=== PATIENT | male | born 1950 | race Caucasian/White ===

== ENCOUNTER 2020-03-30 12:45 | Outpatient (CLI) | payer MEDICARE, SELFPAY ==
[2020-03-30 14:01] LABS: Alanine Aminotransferase 38 U/L (16-63); Albumin Level 4.2 g/dL (3.4-5.0); Alkaline Phosphatase 67 U/L (46-116); Anion Gap 15.2 mmol/L (7-16); Aspartate Amino Transferase 29 U/L (15-37); Bilirubin,Total 1.4 mg/dL (0.00-1.00); Blood Urea Nitrogen 18 mg/dL (7-18); Calcium 9.1 mg/dL (8.5-10.1); Carbon Dioxide 26 mmol/L (21-32); Chloride 101 mmol/L (98-108); Cholesterol 114 mg/dL (0-200); Creatine Kinase 266 U/L (39-308); Estimated Glomerular Filt Rate > 60; Glucose 91 mg/dL (70-99); HDL Direct 45 mg/dL (40-60); LDL Cholesterol Calculated 56 mg/dL (<130); Osmolality Calculated 287 mOsm/kg (285-295); Potassium 4.2 mmol/L (3.5-5.1); Sodium 138 mmol/L (136-145); Total Protein 7.1 g/dL (6.4-8.2); Triglycerides 64 mg/dL (0-150); Uric Acid 6.3 mg/dL (3.5-7.2)
== END 2020-03-30 12:46 | disposition home or self-care (01) ==
LOC: CHSLAB 12:49
PROVIDERS: PCP Internal Medicine; Visit Provider Internal Medicine Cardiovascular Disease
DX: E78.5 Hyperlipidemia, unspecified (principal)
CPT/HCPCS: 36415; 80053; 80061; 82550; 84550

== ENCOUNTER 2021-02-21 07:49 | Outpatient (CLI) | payer MEDICARE, SELFPAY ==
[2021-02-21 08:01] LABS: Basophils Absolute Auto 0.03 K/mm3 (0.00-0.10); Basophils Percent Auto 0.4 % (0.0-1.0); Eosinophils Absolute Auto 0.36 K/mm3 (0.02-0.50); Eosinophils Percent Auto 5.3 % (1.0-6.0); Hematocrit 45.9 % (37.0-46.0); Hemoglobin 15.7 g/dL (12.4-15.3); Immature Granulocyte Absolute 0.04 K/mm3 (0.00-0.00); Immature Granulocyte Percent A 0.6 % (0.0-0.0); Lymphocytes Percent Auto 33.6 % (18.0-42.0); Mean Corpuscular HGB Conc 34.2 g/dL (32.0-36.0); Mean Corpuscular Hemoglobin 31.6 pg (27.0-31.0); Mean Corpuscular Volume 92.4 fL (78.0-102.0); Mean Platelet Volume 9.3 fl (8.7-11.0); Monocytes Absolute Auto 0.64 K/mm3 (0.10-0.90); Monocytes Percent Auto 9.4 % (2.0-11.0); Neutrophils Absolute Auto 3.5 K/mm3 (1.7-7.2); Neutrophils Percent Auto 50.7 % (50.0-70.0); Platelet Count Result 202 K/mm3 (150-420); Red Blood Count 4.97 M/mm3 (4.70-6.10); Red Cell Distribution Width 12.5 % (11.6-14.4); White Blood Count 6.8 K/mm3 (4.8-10.8)
[2021-02-21 09:08] LABS: Alanine Aminotransferase 44 U/L (16-63); Albumin Level 3.9 g/dL (3.4-5.0); Alkaline Phosphatase 73 U/L (46-116); Anion Gap 10 mmol/L (8-16); Aspartate Amino Transferase 20 U/L (15-37); Bilirubin,Total 0.7 mg/dL (0.00-1.00); Blood Urea Nitrogen 20 mg/dL (7-18); Calcium 8.7 mg/dL (8.5-10.1); Carbon Dioxide 26 mmol/L (21-32); Chloride 105 mmol/L (98-108); Cholesterol 115 mg/dL (0-200); Estimated Glomerular Filt Rate > 60; Glucose 126 mg/dL (70-99); HDL Direct 44 mg/dL (40-60); LDL Cholesterol Calculated 60 mg/dL (<130); Osmolality Calculated 296 mOsm/kg (285-295); Potassium 4.3 mmol/L (3.5-5.1); Sodium 141 mmol/L (136-145); Total Protein 6.9 g/dL (6.4-8.2); Triglycerides 55 mg/dL (0-150)
[2021-02-25 11:31] LABS: Hemoglobin A1C 6.1 % (<5.7)
== END 2021-02-21 07:50 | disposition home or self-care (01) ==
LOC: CHSLAB 07:52
PROVIDERS: PCP Internal Medicine; Visit Provider Internal Medicine Cardiovascular Disease
DX: E78.5 Hyperlipidemia, unspecified (principal); R73.01 Impaired fasting glucose
CPT/HCPCS: 36415; 80053; 80061; 83036; 85025

== ENCOUNTER 2021-05-02 09:55 | Outpatient (CLI) | payer MEDICARE, SELFPAY ==
--- NOTE | ~2021-05-02 | XR_ITS ---
EXAMINATION: XR chest 2V DATE: 05/02/2021 10:22 INDICATION: Dyspnea on exertion. Cough. TECHNIQUE: Frontal and lateral views of the chest were obtained on 3 radiographs. COMPARISON: Chest 2 views 07/07/2014 FINDINGS: The chest demonstrates clear lungs without pneumonia, pleural effusion, or pneumothorax. Th e heart size is normal. IMPRESSION: 1. No acute cardiopulmonary disease. Reviewed, dictated and finalized at location A.
== END 2021-05-02 09:56 | disposition home or self-care (01) ==
LOC: CHSIMG 09:58
PROVIDERS: PCP Internal Medicine; Visit Provider Internal Medicine
DX: R06.00 Dyspnea, unspecified (principal); J44.9 Chronic obstructive pulmonary disease, unspecified
CPT/HCPCS: 71046

== ENCOUNTER 2021-05-08 10:09 | Outpatient (CLI) | payer MEDICARE, SELFPAY | END 2021-05-08 10:10 | disposition home or self-care (01) | LOC: CHSCARD 10:12 | PROVIDERS: PCP Internal Medicine; Visit Provider Internal Medicine | DX: R06.00 Dyspnea, unspecified (principal); J44.9 Chronic obstructive pulmonary disease, unspecified | CPT/HCPCS: 94060; 94726; 94729 ==

== ENCOUNTER 2021-08-20 09:21 | Outpatient (CLI) | payer MEDICARE, SELFPAY ==
--- NOTE | ~2021-08-20 | XR_ITS ---
XR chest 2V DATE: 08/20/2021 12:31 INDICATION: Congestion, anterior chest pain. COPD. TECHNIQUE: 2 views COMPARISON: 05/12/2021 2 view chest FINDINGS: Normal heart size. There appears to be a coronary artery stent. No hilar or mediastinal enl argement. The lungs are hyperinflated consistent with clinical diagnosis of COPD. No pulmonary infiltrate or co nsolidation, pleural effusion or pulmonary vascular congestion or pneumothorax is detected. IMPRESSION: Bilateral hyperinflation; no active cardiopulmonary disease Reviewed, dictated and finalized at location A.
[2021-08-20 10:26] LABS: SARS-CoV-2 RNA PCR Negative (Negative)
[2021-08-20 12:13] LABS: Basophils Absolute Auto 0.06 K/mm3 (0.00-0.10); Basophils Percent Auto 0.7 % (0.0-1.0); Eosinophils Percent Auto 5.9 % (1.0-6.0); Hematocrit 47.7 % (37.0-46.0); Hemoglobin 16.5 g/dL (12.4-15.3); Immature Granulocyte Absolute 0.05 K/mm3 (0.00-0.00); Immature Granulocyte Percent A 0.6 % (0.0-0.0); Lymphocytes Absolute Auto 2.68 K/mm3 (1.10-4.50); Lymphocytes Percent Auto 31.4 % (18.0-42.0); Mean Corpuscular HGB Conc 34.6 g/dL (32.0-36.0); Mean Corpuscular Hemoglobin 31.5 pg (27.0-31.0); Mean Platelet Volume 9.1 fl (8.7-11.0); Monocytes Absolute Auto 0.58 K/mm3 (0.10-0.90); Monocytes Percent Auto 6.8 % (2.0-11.0); Neutrophils Absolute Auto 4.7 K/mm3 (1.7-7.2); Neutrophils Percent Auto 54.6 % (50.0-70.0); Platelet Count Result 235 K/mm3 (150-420); Red Blood Count 5.24 M/mm3 (4.70-6.10); Red Cell Distribution Width 12.9 % (11.6-14.4); White Blood Count 8.5 K/mm3 (4.8-10.8)
[2021-08-20 12:29] LABS: Alanine Aminotransferase 42 U/L (16-63); Alkaline Phosphatase 75 U/L (46-116); Anion Gap 12 mmol/L (8-16); Aspartate Amino Transferase 21 U/L (15-37); Bilirubin,Total 0.7 mg/dL (0.00-1.00); Blood Urea Nitrogen 17 mg/dL (7-18); Calcium 8.7 mg/dL (8.5-10.1); Carbon Dioxide 25 mmol/L (21-32); Chloride 104 mmol/L (98-108); Estimated Glomerular Filt Rate > 60; Glucose 136 mg/dL (70-99); Osmolality Calculated 295 mOsm/kg (285-295); Sodium 141 mmol/L (136-145); Total Protein 7.5 g/dL (6.4-8.2)
[2021-08-20 12:33] LABS: Influenza Control Valid (Valid)
== END 2021-08-20 09:22 | disposition home or self-care (01) ==
PROVIDERS: PCP Internal Medicine; Visit Provider Internal Medicine
DX: J44.1 Chronic obstructive pulmonary disease with (acute) exacerbation (principal); J06.9 Acute upper respiratory infection, unspecified; Z20.822 Contact with and (suspected) exposure to COVID-19
CPT/HCPCS: 71046; 80053; 85025; 87804; C9803; U0003; U0005

== ENCOUNTER 2021-09-12 08:44 | Outpatient (CLI) | payer MEDICARE, SELFPAY ==
[2021-09-12 09:35] LABS: Alanine Aminotransferase 40 U/L (16-63); Alkaline Phosphatase 68 U/L (46-116); Anion Gap 7 mmol/L (8-16); Aspartate Amino Transferase 19 U/L (15-37); Bilirubin,Total 0.7 mg/dL (0.00-1.00); Blood Urea Nitrogen 21 mg/dL (7-18); Calcium 8.7 mg/dL (8.5-10.1); Carbon Dioxide 28 mmol/L (21-32); Chloride 106 mmol/L (98-108); Cholesterol 124 mg/dL (0-200); Estimated Glomerular Filt Rate > 60; Glucose 137 mg/dL (70-99); HDL Direct 55 mg/dL (40-60); LDL Cholesterol Calculated 59 mg/dL (<130); Osmolality Calculated 297 mOsm/kg (285-295); Potassium 4.3 mmol/L (3.5-5.1); Sodium 141 mmol/L (136-145); Total Protein 6.7 g/dL (6.4-8.2); Triglycerides 49 mg/dL (0-150)
[2021-09-13 09:26] LABS: Hemoglobin A1C 6.3 % (<5.7)
== END 2021-09-12 08:45 | disposition home or self-care (01) ==
LOC: CHSLAB 08:50
PROVIDERS: PCP Internal Medicine; Visit Provider Internal Medicine Cardiovascular Disease
DX: E78.5 Hyperlipidemia, unspecified (principal); R73.01 Impaired fasting glucose
CPT/HCPCS: 36415; 80053; 80061; 83036

== ENCOUNTER 2021-09-23 09:41 | Outpatient (CLI) | payer MEDICARE, SELFPAY ==
--- NOTE | ~2021-09-23 | XR_ITS ---
EXAMINATION: XR lumbar spine 2-3V EXAM DATE: 09/23/2021 10:08 INDICATION: Lower back pain into R hip/groin pain x6wks, NKI. TECHNIQUE: Lumber spine frontal, lateral, lateral L5-S1 projections for interpretation. There is no prior study for comparison. FINDINGS: Mild diffuse lumbar disc disease. As moderate lumbar facet arthropathy. The vertebral mellissa s are aligned in the AP dimension. There are no acute fractures identified. Paraspinal soft tissue is unremarkable. Sacrum, sacroiliac joints, sacral arcuate lines are intact. IMPRESSION: Mild lumbar disc disease, mild to moderate arthropathy. Reviewed, dictated and finalized at location A. 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
--- NOTE | ~2021-09-23 | XR_ITS ---
EXAMINATION: XR hip RT min 2V DATE: 09/23/2021 10:10 INDICATION: Right hip pain. TECHNIQUE: 2 views of right hip were obtained. COMPARISON: None. FINDINGS: Bone alignment is normal. No fracture. There is mild right hip osteoarthritis. IMPRESSION: 1. Mild right hip osteoarthritis. Reviewed, dictated and finalized at location A. MER
== END 2021-09-23 09:42 | disposition home or self-care (01) ==
LOC: CHSIMG 09:44
PROVIDERS: PCP Internal Medicine; Visit Provider Internal Medicine
DX: M25.551 Pain in right hip (principal); M54.50 Low back pain, unspecified
CPT/HCPCS: 72100; 73502

== ENCOUNTER 2021-09-30 09:57 | Outpatient (RCR) | payer MEDICARE, SELFPAY ==
--- NOTE | 2021-09-30 11:03 | PTOPEVAL ---
Thank you for referring Seun Lemus to [facility].? The patient is scheduled to be seen for therapy? ____x/week for ___ weeks. Please review, sign, date and return this plan of care NIDIA. I agree with and certify that the following plan of care is medically necessary. Referring Physician Date Admitting Provider: Attending Provider: Rosaline Banegas MD Referring Provider: *PT Outpatient Evaluation Start: 09/30/21 09:58 Freq: Status: Active Protocol: Document 09/30/21 09:59 ACR (Rec: 09/30/21 11:01 ACR [id number]) Therapy Assessment Status Assessment Status Assessment Status Evaluation Evaluation Information Problem Diagnosis R hip pain, back pain Onset 08/24/21 Subjective Information Patient reports that he was Query Text:As Reported By Patient/ lifting something and his hip Family started to bother him the next day. Patient states that he has difficulty with walking up the stairs, prolonged walking , getting up out of bed in the morning. The patient reports that his goal for therapy is to get stronger. Prior Level of Function Activity Level (Last 3 Months) Occupation retired Hand Dominance Right Activity of Daily Living Ability Independent Indoor/Home Mobility Independent Community Mobility Independent Stairs Ability Independent Functional Cognition (Planning, Shopping Independent , Taking Medications) Cooking Yes Cleaning Yes Laundry Yes Shopping Yes Driving Yes Pain Assessment Timing of Pain Assessment Timing of Pain Assessment Assessment Pain Scale Pain Scale Used Numeric (1 - 10) Self Report Pain Assessment Right Hip(s) Reported Pain Level 2 Greatest Pain Intensity 5 Pain Score Pain Score 2: Self Report Interventions Used Interventions Used By Clinicians Activity or ADL's,Exercise Lower Extremity Range of Motion Hip Range of Motion Right Hip Flexion Range of Motion - Active 104 Hip Abduction Range of Motion - Active 45 Lower Extremity Muscle Strength Testing Hip Strength Right Hip Flexion Strength 4+ Good + Hip Abduction Strength 3+ Fair + Left Hip Flexion Strength 4+ Good + Hip Abduction Strength 4 Good Muscle Length Testing Muscle Length Testing Piriformis w/Hip Flexion >90 Degrees (R) Moderate Tightness,(L) Moderate Tightness
--- NOTE | 2021-10-29 10:02 | PTOPEVAL ---
Thank you for referring Seun Lemus to [facility][Note 3].? The patient is scheduled to be seen for therapy? ____x/week for ___ weeks. Please review, sign, date and return this plan of care NIDIA. I agree with and certify that the following plan of care is medically necessary. Referring Physician Date Admitting Provider: Attending Provider: Rosaline Banegas MD Referring Provider: *PT Outpatient Evaluation Start: 09/30/21 09:58 Freq: Status: Active Protocol: Document 10/29/21 08:58 ACR (Rec: 10/29/21 10:01 ACR [id number]) Therapy Assessment Status Assessment Status Assessment Status Re-evaluation Evaluation Information Problem Diagnosis back pain, R hip pain, R knee pain Onset 08/24/21 Subjective Information Patient states that he has Query Text:As Reported By Patient/ been gone for 3 weeks and his Family hip has stopped bothering him. He states that his knee is really bothering him and got a cortizone shot in the knee on and the knee feels a little bit better. He was having difficulty with steps, but since the shot is able to do so. Patient states that he did yoga and caused some knee soreness but felt fine throughout the day. He states that he still has difficulty with steps and walking for a period of time. Pain Assessment Timing of Pain Assessment Timing of Pain Assessment Pre-Treatment Pain Scale Pain Scale Used Numeric (1 - 10) Self Report Pain Assessment Right Knee(s) Reported Pain Level 4 Greatest Pain Intensity 9 Right Hip(s) Reported Pain Level 0 Greatest Pain Intensity 0 Pain Score Pain Score 0,4: Self Report Interventions Used Interventions Used By Clinicians Activity or ADL's,Exercise Lower Extremity Range of Motion General Lower Extremity Range of Motion Gross Lower Extremity Range of Motion knee AROM R: 0-2-127 Comments knee AROM L: 0-130 Lower Extremity Muscle Strength Testing Hip Strength Right Hip Flexion Strength 5 Normal Hip Abduction Strength 4 Good Left Hip Flexion Strength 5 Normal Hip Abduction Strength 4+ Good + Knee Strength Left Knee Flexion Strength 5 Normal Knee Extension Strength 4+ Good + Right Knee Flexion Strength 4+ Good +
--- NOTE | 2021-11-26 09:02 | PTOPEVAL ---
Thank you for referring Seun Lemus to [facility].? The patient is scheduled to be seen for therapy? ____x/week for ___ weeks. Please review, sign, date and return this plan of care NIDIA. I agree with and certify that the following plan of care is medically necessary. Referring Physician Date Admitting Provider: Attending Provider: Rosaline Banegas MD Referring Provider: *PT Outpatient Evaluation Start: 09/30/21 09:58 Freq: Status: Active Protocol: Document 11/26/21 08:05 ACR (Rec: 11/26/21 09:02 ACR [id number]) Therapy Assessment Status Assessment Status Assessment Status Discharge Evaluation Information Problem Diagnosis R knee pain Onset 08/24/21 Subjective Information Patient reports that the knee Query Text:As Reported By Patient/ was really painful and the Family pain has gotten a little better and it has stayed there . He states that the next steps are getting shots in it, but he does not want to get surgery. He states that he feels therapy did help him, but arthritis is his biggest problem at this time. Pain Assessment Timing of Pain Assessment Timing of Pain Assessment Assessment Pain Scale Pain Scale Used Numeric (1 - 10) Self Report Pain Assessment Right Knee(s) Reported Pain Level 3 Greatest Pain Intensity 3 Pain Score Pain Score 3: Self Report Interventions Used Interventions Used By Clinicians Activity or ADL's,Exercise Lower Extremity Muscle Strength Testing Hip Strength Right Hip Flexion Strength 5 Normal Hip Abduction Strength 4+ Good + Left Hip Flexion Strength 5 Normal Hip Abduction Strength 5 Normal Knee Strength Left Knee Flexion Strength 5 Normal Knee Extension Strength 5 Normal Right Knee Flexion Strength 5 Normal Knee Extension Strength 5 Normal Gait Assessment Gait Assessment Additional Ambulation Comments Patient ambulates into the clinic with improved mechanics and no antalgia after a period of time of walking. General Exercise General Exercises Exercise Description Nustep level 5, 10 minutes for Query Text:Record Sets, Reps, CV endurance and resistance Resistance, and Position to the LE to improve strength - slantboard stretch x 1 minute x 3 TherAct
== END 2021-11-26 13:44 | disposition home or self-care (01) ==
LOC: CHSPT 09:57
PROVIDERS: PCP Internal Medicine; Visit Provider Internal Medicine
DX: M47.816 Spondylosis without myelopathy or radiculopathy, lumbar region (principal); M16.11 Unilateral primary osteoarthritis, right hip; M25.561 Pain in right knee
CPT/HCPCS: 97014; 97110; 97140; 97161; 97164; 97530; G0283

== ENCOUNTER 2021-10-23 15:33 | Outpatient (CLI) | payer MEDICARE, SELFPAY ==
--- NOTE | ~2021-10-23 | XR_ITS ---
EXAMINATION: XR knee RT min 4V DATE: 10/23/2021 16:02 INDICATION: Chronic right knee pain. TECHNIQUE: 4 views of right knee including standing views were obtained. COMPARISON: Right knee radiographs 01/17/2019 FINDINGS: Bone alignment is normal. No fracture. There is moderate osteoarthritis of lateral compartm ent and mild osteoarthritis of medial and patellofemoral compartments. No knee joint effusion. IMPRESSION: 1. Moderate right knee osteoarthritis. Reviewed, dictated and finalized at location D. 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
== END 2021-10-23 15:34 | disposition home or self-care (01) ==
LOC: CHSIMG 15:34
PROVIDERS: PCP Internal Medicine; Visit Provider Internal Medicine
DX: M25.561 Pain in right knee (principal)
CPT/HCPCS: 73564

== ENCOUNTER 2021-10-28 11:40 | Outpatient (CLI) | payer MEDICARE, SELFPAY ==
--- NOTE | ~2021-10-28 | CT_ITS ---
EXAMINATION: CT diagnostic chest wo con DATE: 10/28/2021 11:55 INDICATION: Chronic cough TECHNIQUE: Computed tomography (CT) of the chest was performed without intravenous contrast. Automate d exposure control and iterative reconstruction technique were employed. Exam dose: 619.87 mGy-cm to rosemarie exam DLP. COMPARISON: 08/20/2021 2 view chest FINDINGS: Normal heart size. No pericardial or pleural effusion. No thoracic aortic aneurysm. No h ilar or mediastinal mass lesion or lymphadenopathy. No pericardial effusion. There is mild emphysema. There is a 3.5 nodule in the left lower lobe (series 4 image 103). No pulmonary infiltrate or consol idation, pulmonary vascular congestion or pleural effusion or pneumothorax. There is a small sliding hiatal hernia. Normal adrenal gland morphology. IMPRESSION: Mild emphysema Small sliding hiatal hernia Reviewed, dictated and finalized at Location A. Reviewed, dictated and finalized at location A. EPERSON
== END 2021-10-28 11:41 | disposition home or self-care (01) ==
LOC: CHSIMG 11:43
PROVIDERS: PCP Internal Medicine; Visit Provider Internal Medicine
DX: R05.3 Chronic cough (principal); J44.9 Chronic obstructive pulmonary disease, unspecified
CPT/HCPCS: 71250

== ENCOUNTER 2021-11-22 10:59 | Outpatient (CLI) | payer MEDICARE, SELFPAY ==
[2021-11-22 11:14] LABS: Basophils Absolute Auto 0.04 K/mm3 (0.00-0.10); Basophils Percent Auto 0.5 % (0.0-1.0); Eosinophils Absolute Auto 0.25 K/mm3 (0.02-0.50); Hematocrit 47.5 % (37.0-46.0); Hemoglobin 16.3 g/dL (12.4-15.3); Immature Granulocyte Absolute 0.08 K/mm3 (0.00-0.00); Immature Granulocyte Percent A 0.9 % (0.0-0.0); Lymphocytes Absolute Auto 2.42 K/mm3 (1.10-4.50); Lymphocytes Percent Auto 28.6 % (18.0-42.0); Mean Corpuscular HGB Conc 34.3 g/dL (32.0-36.0); Mean Corpuscular Hemoglobin 32.1 pg (27.0-31.0); Mean Corpuscular Volume 93.5 fL (78.0-102.0); Mean Platelet Volume 8.9 fl (8.7-11.0); Monocytes Absolute Auto 0.65 K/mm3 (0.10-0.90); Monocytes Percent Auto 7.7 % (2.0-11.0); Neutrophils Percent Auto 59.3 % (50.0-70.0); Platelet Count Result 207 K/mm3 (150-420); Red Blood Count 5.08 M/mm3 (4.70-6.10); Red Cell Distribution Width 12.4 % (11.6-14.4); White Blood Count 8.5 K/mm3 (4.8-10.8)
[2021-11-22 12:19] LABS: Erythrocyte Sedimentation Rate 4 mm/hr (0-20)
[2021-11-22 12:24] LABS: Alanine Aminotransferase 42 U/L (16-63); Alkaline Phosphatase 69 U/L (46-116); Anion Gap 10 mmol/L (8-16); Aspartate Amino Transferase 16 U/L (15-37); Bilirubin,Total 0.5 mg/dL (0.00-1.00); Blood Urea Nitrogen 21 mg/dL (7-18); Calcium 8.9 mg/dL (8.5-10.1); Carbon Dioxide 27 mmol/L (21-32); Chloride 101 mmol/L (98-108); Estimated Glomerular Filt Rate > 60; Free T3 2.42 pg/mL (2.18-3.98); Free T4 Free Thyroxine 0.97 ng/dL (0.76-1.46); Glucose 137 mg/dL (70-99); Osmolality Calculated 291 mOsm/kg (285-295); Sodium 138 mmol/L (136-145); Thyroid Stimulating Hormone 0.58 uIU/mL (0.36-3.74); Vitamin B12 447 pg/mL (193-986)
[2021-11-26 15:11] LABS: RPR Screen Non-Reactive (Non-Reactive)
== END 2021-11-22 11:00 | disposition home or self-care (01) ==
LOC: CHSLAB 11:01
PROVIDERS: PCP Internal Medicine; Visit Provider Internal Medicine
DX: R41.3 Other amnesia (principal)
CPT/HCPCS: 36415; 80053; 82607; 84439; 84443; 84481; 85025; 85652; 86038; 86592

== ENCOUNTER 2021-11-26 07:50 | Outpatient (CLI) | payer MEDICARE, SELFPAY ==
--- NOTE | ~2021-11-26 | MR_ITS ---
EXAMINATION: MR brain/brain stem wo con DATE: 11/26/2021 10:03 INDICATION: Memory loss. TECHNIQUE: Magnetic resonance imaging (MRI) of the brain and brainstem was performed without intraven ous contrast. Sequences included sagittal and axial T1-weighted FSE, axial diffusion-weighted FS EPI, axial T2*-weighted GRE, axial T2-weighted FLAIR Propeller, and axial T2-weighted Propeller. Apparent diffusion coefficient (ADC) maps were created. COMPARISON: None. FINDINGS: There are scattered areas of nonspecific increased T2-weighted signal intensity in the cere bral white matter, which is within normal limits for the patient's age. There is no intracranial hemo rrhage, acute infarction, or abnormal intracranial mass lesion. The ventricles are normal in size. Th ere is mucosal thickening in the paranasal sinuses. There are likely changes of right ocular lens rep lacement surgery. There is a small right mastoid effusion. IMPRESSION: 1. Normal aging brain. Reviewed, dictated and finalized at location A. 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 Normal aging brain.
== END 2021-11-26 07:51 | disposition home or self-care (01) ==
LOC: CHSIMG 07:51
PROVIDERS: PCP Internal Medicine; Visit Provider Internal Medicine
DX: R41.3 Other amnesia (principal)
CPT/HCPCS: 70551

== ENCOUNTER 2023-01-19 13:23 | Outpatient (RCR) | payer MEDICARE, SELFPAY ==
[2023-01-19 10:38] VITALS: BP_SYST 170
--- NOTE | 2023-01-19 12:55 | PTOPEVAL1 ---
Assessment and note entered by Estrella Palmer DPT Evaluation Information Assessment Status Evaluation Diagnosis L shoulder pain Onset 10/07/22 Subjective Information Patient reports he was pulling overhead and felt pain in the L shoulder. He reports this happened in September and he is still having pain. He went to the MD who wanted to try PT before any imagining. He reports the MD thought it was a pulled muscle. He now has difficulty with walking with his arm unsupported and sleeping are most difficult for him. He reports he is retired but likes to continue to stay busy and also golfs. Reported Pain Level Pain Score 3: Self Report Assessment PT Clinical Summary Patient is a 72 year old male who presents to PT with L shoulder pain. Patient demonstrates decreased L shoulder strength, ROM and positive drop arm test indicating possible RTC involvement. Patient has difficulty with sleeping, ambulating and reaching with is arm and would benefit from skilled PT to address impairments and return to PLOF. Plan of Care Interventions Electrical Stimulation,Hot Pack/Cold Pack,Manual Therapy,Mechanical Traction,Neuro Re-education, Patient/Caregiver Educati,Therapeutic Activities, Therapeutic Exercise PT Services Indicated Yes Treatment Frequency and 2x weekly for 10 visits Duration These treatments will address the objective and functional deficits as defined above. The patient will be advanced safely and appropriately in order for the patient to progress towards his/her prior level of function. Additional exercises will be introduced and as well as a comprehensive home exercise program upon discharge, if needed, ?to ensure carryover of functional gains achieved in the clinic. This treatment plan has been reviewed and agreement upon by the patient.
[2023-02-19 08:03] VITALS: BP_SYST 170
--- NOTE | 2023-02-19 09:22 | PTOPREEVAL ---
Assessment and note entered by Estrella Palmer DPT Evaluation Information Assessment Status Re-evaluation Diagnosis L shoulder pain Onset 10/07/22 Subjective Information Patient reports he conttinues to have pain with reaching out to the side for activities but does report that he is no longer waking up at night due to shoulder pain. Reported Pain Level Pain Score 5: Self Report Assessment PT Clinical Summary Patient has been seen for 10 from 01/19/23-02/19/23. He has made good progress in L UE ROM and strength. He continues to report increase in pain levels and difficulty reaching out to the side. He also objectively demonstrates decreased ER/IR strength at the L shoulder. He will follow up with MD and continue skilled PT to address remaining impairments and return to OF. Plan of Care Interventions Electrical Stimulation,Hot Pack/Cold Pack,Manual Therapy,Mechanical Traction,Neuro Re-education, Patient/Caregiver Educati,Therapeutic Activities, Therapeutic Exercise PT Services Indicated Yes Treatment Frequency and Continue PT 2x/weekly for 6 visits Duration These treatments will address the objective and functional deficits as defined above. The patient will be advanced safely and appropriately in order for the patient to progress towards his/her prior level of function. Additional exercises will be introduced and as well as a comprehensive home exercise program upon discharge, if needed, ?to ensure carryover of functional gains achieved in the clinic. This treatment plan has been reviewed and agreement upon by the patient.
--- NOTE | 2023-04-30 14:46 | PCPTNOTE ---
Patient is being discharged at this time due to pain still present and awaiting MRI results
== END 2023-02-24 23:59 | disposition home or self-care (01) ==
LOC: CHSPT 13:23
PROVIDERS: PCP Internal Medicine; Visit Provider Internal Medicine
DX: M25.512 Pain in left shoulder (principal)
CPT/HCPCS: 97014; 97110; 97140; 97161; G0283

== ENCOUNTER 2023-03-02 14:52 | Outpatient (CLI) | payer MEDICARE, SELFPAY ==
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
== END 2023-03-02 14:53 | disposition home or self-care (01) ==
PROVIDERS: PCP Internal Medicine; Visit Provider Internal Medicine
DX: M25.512 Pain in left shoulder (principal); M19.012 Primary osteoarthritis, left shoulder
CPT/HCPCS: 73030

== ENCOUNTER 2023-03-28 09:44 | Outpatient (CLI) | payer MEDICARE, SELFPAY | END 2023-03-28 09:45 | disposition home or self-care (01) | LOC: CHSIMG 09:45 | PROVIDERS: PCP Internal Medicine; Visit Provider Internal Medicine | DX: M25.512 Pain in left shoulder (principal) | CPT/HCPCS: 99199 ==

== ENCOUNTER → 2023-04-06 08:16 | Outpatient (CLI) | payer MEDICARE, SELFPAY ==
--- NOTE | ~2023-04-06 | MR_ITS ---
EXAMINATION: MR shoulder LT wo con DATE: 04/06/2023 09:05 INDICATION: L shoulder pain, following a pulling injury. TECHNIQUE: Magnetic resonance imaging (MRI) of the left shoulder was performed without intravenous co ntrast. Sequences included axial PD-weighted FS FSE, coronal oblique PD-weighted FS FSE and T2-weight ed FS FSE, and sagittal oblique T2-weighted FS FSE and T1-weighted FSE. COMPARISON: X-ray left shoulder 03/02/2023. FINDINGS: Coracoacromial arch: Subacromial narrowing to 4 mm. Acromial tip enthesopathy. Mild anterior and lateral downsloping of th e mild type III acromion. Rotator cuff: Full-thickness supraspinatus tear with retraction to the 1:00 position. Mild supraspinatus atrophy. A bnormal signal and thickening in the distal subscapularis. Fatty atrophy of the teres minor. No fatty atrophy of the deltoid. Biceps tendon and glenoid labrum: Longitudinal tear and severe thinning of the long head of biceps tendon with medial subluxation. Supe rior labral tear. Posterior inferior labral tear. Fluid: Normal volume joint fluid. No abnormal fluid collection. Bones/cartilage: Superior displacement of the distal clavicle relative to the acromion. Severe degenerative change at the AC joint. Heterotopic ossification inferior to the distal clavicle with pseudoarthrosis with the coracoid process. Glenohumeral cartilage thinning. IMPRESSION: 1. Full-thickness supraspinous tear with mild atrophy and retraction. 2. Superior and posteroinferior labral tears. 3. Longitudinal tear of the long head of biceps tendon, with medial subluxation and partial subscapul festus tear. 4. Old high-grade AC joint injury, with heterotopic bone formation and pseudarthrosis with the coraco id process. 5. Teres minor atrophy, without definite mass detected in the quadrilateral space. Correlate for find ings of paresthesia the axillary nerve distribution. Reviewed, dictated and finalized at location K. IMPRESSION: 1. Full-thickness supraspinous tear with mild atrophy and retraction. 2. Superior and posteroinferior labral tears. 3. Longitudinal tear of the long head of biceps tendon, with medial subluxation and partial subscapularis tear. 4. Old high-grade AC joint injury, with heterotopic bone formation and pseudart hrosis with the coracoid process. 5. Teres minor atrophy, without definite mass detected in the quadrilateral spa ce. Correlate for findings of paresthesia the axillary nerve distribution.
== END ==
PROVIDERS: PCP Internal Medicine; Visit Provider Internal Medicine
DX: M75.102 Unspecified rotator cuff tear or rupture of left shoulder, not specified as traumatic (principal); S43.432A Superior glenoid labrum lesion of left shoulder, initial encounter; X58.XXXA Exposure to other specified factors, initial encounter
CPT/HCPCS: 73221

== ENCOUNTER 2023-04-17 09:56 | Outpatient (CLI) | payer MEDICARE, SELFPAY ==
[2023-04-17 10:22] LABS: Basophils Absolute Auto 0.04 K/mm3 (0.00-0.10); Basophils Percent Auto 0.5 % (0.0-1.0); Hematocrit 41.9 % (37.0-46.0); Hemoglobin 14.6 g/dL (12.4-15.3); Immature Granulocyte Percent A 1.3 % (0.0-0.0); Lymphocytes Absolute Auto 2.49 K/mm3 (1.10-4.50); Lymphocytes Percent Auto 33.2 % (18.0-42.0); Mean Corpuscular HGB Conc 34.8 g/dL (32.0-36.0); Mean Corpuscular Hemoglobin 31.6 pg (27.0-31.0); Mean Corpuscular Volume 90.7 fL (78.0-102.0); Mean Platelet Volume 9.6 fl (8.7-11.0); Monocytes Absolute Auto 0.68 K/mm3 (0.10-0.90); Monocytes Percent Auto 9.1 % (2.0-11.0); Neutrophils Absolute Auto 3.9 K/mm3 (1.7-7.2); Neutrophils Percent Auto 51.9 % (50.0-70.0); Platelet Count Result 196 K/mm3 (150-420); Red Blood Count 4.62 M/mm3 (4.70-6.10); Red Cell Distribution Width 12.4 % (11.6-14.4); White Blood Count 7.5 K/mm3 (4.8-10.8)
[2023-04-17 10:30] LABS: Appearance Urine Clear (Clear); Bilirubin Urine Negative (Negative); Blood Urine Negative (Negative); Color Urine Yellow (Yellow); Glucose Urine UA Trace (Negative); Ketones Urine Negative (Negative); Leukocyte Esterase Ur Negative (Negative); Nitrate Urine Negative (Negative); Protein Urine Negative (Negative); Specific Grav Ur 1.025 (1.010-1.020); Urobilinogen Urine 0.2 mg/dL (0.2-1.0); pH Urine 5.5 (5.0-8.0)
[2023-04-17 10:35] LABS: Add Urine Microscopic? YES; Bacteria Urine None seen /hpf; Hemoglobin A1C 7.4 % (<5.7); RBC Urine 0-2 /hpf (0-2); Squamous Epithelial Cell Urine Rare /hpf (Few); WBC Urine 0-3 /hpf (0-3)
[2023-04-17 10:59] LABS: Alanine Aminotransferase 47 U/L (16-63); Alkaline Phosphatase 78 U/L (46-116); Anion Gap 10 mmol/L (8-16); Aspartate Amino Transferase 22 U/L (15-37); Bilirubin,Total 0.7 mg/dL (0.00-1.00); Blood Urea Nitrogen 22 mg/dL (7-18); Calcium 9.1 mg/dL (8.5-10.1); Carbon Dioxide 26 mmol/L (21-32); Chloride 103 mmol/L (98-108); Cholesterol 137 mg/dL (0-200); Creatine Kinase 211 U/L (39-308); Estimated Glomerular Filt Rate > 60; Free T4 Free Thyroxine 1.07 ng/dL (0.76-1.46); Glucose 207 mg/dL (70-99); HDL Direct 49 mg/dL (40-60); LDL Cholesterol Calculated 72 mg/dL (<130); Osmolality Calculated 297 mOsm/kg (285-295); Potassium 3.9 mmol/L (3.5-5.1); Sodium 139 mmol/L (136-145); Thyroid Stimulating Hormone 0.58 uIU/mL (0.36-3.74); Total Protein 7.1 g/dL (6.4-8.2); Triglycerides 80 mg/dL (0-150)
== END 2023-04-17 09:57 | disposition home or self-care (01) ==
LOC: CHSLAB 09:59
PROVIDERS: PCP Internal Medicine; Visit Provider Internal Medicine
DX: I25.10 Atherosclerotic heart disease of native coronary artery without angina pectoris (principal); R73.01 Impaired fasting glucose; I10 Essential (primary) hypertension; E78.2 Mixed hyperlipidemia; B19.20 Unspecified viral hepatitis C without hepatic coma; G31.84 Mild cognitive impairment of uncertain or unknown etiology; K76.0 Fatty (change of) liver, not elsewhere classified; C61 Malignant neoplasm of prostate
CPT/HCPCS: 36415; 80053; 80061; 81001; 82550; 83036; 84439; 84443; 85025

== ENCOUNTER 2023-07-29 10:59 | Outpatient (CLI) | payer MEDICARE, SELFPAY ==
[2023-07-29 11:27] LABS: Appearance Urine Clear (Clear); Bilirubin Urine Negative (Negative); Blood Urine Negative (Negative); Color Urine Yellow (Yellow); Glucose Urine UA Negative (Negative); Ketones Urine Negative (Negative); Leukocyte Esterase Ur Negative (Negative); Nitrate Urine Negative (Negative); Protein Urine Negative (Negative); Specific Grav Ur 1.015 (1.010-1.020); Urobilinogen Urine 0.2 mg/dL (0.2-1.0); pH Urine 6.5 (5.0-8.0)
[2023-07-29 11:30] LABS: Add Urine Microscopic? NO; Hemoglobin A1C 5.3 % (<5.7)
[2023-07-29 11:37] LABS: Creatinine Urine 186.21 mg/dL (40-278); MALB Creatinine Ratio 6.9 mg/g (0-30); Microalbumin Urine Random < 13.0 mg/L
[2023-07-29 11:56] LABS: Alanine Aminotransferase 37 U/L (16-63); Alkaline Phosphatase 68 U/L (46-116); Anion Gap 9 mmol/L (8-16); Aspartate Amino Transferase 20 U/L (15-37); Bilirubin,Total 1.2 mg/dL (0.00-1.00); Blood Urea Nitrogen 16 mg/dL (7-18); Calcium 9.7 mg/dL (8.5-10.1); Carbon Dioxide 27 mmol/L (21-32); Chloride 106 mmol/L (98-108); Estimated Glomerular Filt Rate > 60; Glucose 109 mg/dL (70-99); Osmolality Calculated 296 mOsm/kg (285-295); Sodium 142 mmol/L (136-145); Total Protein 6.7 g/dL (6.4-8.2)
== END 2023-07-29 11:00 | disposition home or self-care (01) ==
LOC: CHSLAB 11:01
PROVIDERS: PCP Internal Medicine; Visit Provider Internal Medicine
DX: E11.65 Type 2 diabetes mellitus with hyperglycemia (principal)
CPT/HCPCS: 36415; 80048; 80053; 81003; 82043; 83036

== ENCOUNTER 2024-01-14 12:06 | Outpatient (CLI) | payer MEDICARE, SELFPAY ==
[2024-01-14 12:38] LABS: Basophils Absolute Auto 0.07 K/mm3 (0.00-0.10); Basophils Percent Auto 0.7 % (0.0-1.0); Eosinophils Absolute Auto 0.07 K/mm3 (0.02-0.50); Eosinophils Percent Auto 0.7 % (1.0-6.0); Hematocrit 42.2 % (37.0-46.0); Hemoglobin 14.1 g/dL (12.4-15.3); Immature Granulocyte Absolute 0.22 K/mm3 (0.00-0.00); Immature Granulocyte Percent A 2.2 % (0.0-0.0); Lymphocytes Absolute Auto 1.87 K/mm3 (1.10-4.50); Lymphocytes Percent Auto 18.4 % (18.0-42.0); Mean Corpuscular HGB Conc 33.4 g/dL (32-36); Mean Corpuscular Hemoglobin 31.3 pg (27.0-31.0); Mean Corpuscular Volume 93.8 fL (78.0-102.0); Mean Platelet Volume 9.1 fl (8.7-11.0); Monocytes Absolute Auto 0.91 K/mm3 (0.10-0.90); Monocytes Percent Auto 8.9 % (2.0-11.0); Neutrophils Absolute Auto 7.03 K/mm3 (1.70-7.20); Neutrophils Percent Auto 69.1 % (50.0-70.0); Platelet Count Result 207 K/mm3 (150-420); Red Cell Distribution Width 13.2 % (11.6-14.4); White Blood Count 10.2 K/mm3 (4.8-10.8)
[2024-01-14 12:58] LABS: Hemoglobin A1C 6.4 % (<5.7)
[2024-01-14 13:23] LABS: Alanine Aminotransferase 34 U/L (16-63); Albumin Level 4.1 g/dL (3.4-5.0); Alkaline Phosphatase 75 U/L (46-116); Anion Gap 9 mmol/L (8-16); Aspartate Amino Transferase 16 U/L (15-37); Bilirubin,Total 0.6 mg/dL (0.00-1.00); Blood Urea Nitrogen 20 mg/dL (7-18); Calcium 9.2 mg/dL (8.5-10.1); Carbon Dioxide 29 mmol/L (21-32); Chloride 102 mmol/L (98-108); Estimated Glomerular Filt Rate > 60; Glucose 160 mg/dL (70-99); Osmolality Calculated 295 mOsm/kg (285-295); Potassium 3.9 mmol/L (3.5-5.1); Sodium 140 mmol/L (136-145); Total Protein 6.9 g/dL (6.4-8.2)
== END 2024-01-14 12:07 | disposition home or self-care (01) ==
LOC: CHSLAB 12:09
PROVIDERS: PCP Internal Medicine; Visit Provider Internal Medicine
DX: E11.9 Type 2 diabetes mellitus without complications (principal); I10 Essential (primary) hypertension; B19.20 Unspecified viral hepatitis C without hepatic coma
CPT/HCPCS: 36415; 80053; 83036; 85025

== ENCOUNTER 2024-04-20 11:31 | Outpatient (CLI) | payer MEDICARE, SELFPAY ==
[2024-04-20 11:49] LABS: Basophils Absolute Auto 0.02 K/mm3 (0.00-0.10); Basophils Percent Auto 0.1 % (0.0-1.0); Hematocrit 42.5 % (37.0-46.0); Hemoglobin 14.8 g/dL (12.4-15.3); Immature Granulocyte Absolute 0.11 K/mm3 (0.00-0.00); Immature Granulocyte Percent A 0.7 % (0.0-0.0); Lymphocytes Absolute Auto 1.68 K/mm3 (1.10-4.50); Lymphocytes Percent Auto 10.2 % (18.0-42.0); Mean Corpuscular HGB Conc 34.8 g/dL (32-36); Mean Corpuscular Hemoglobin 31.8 pg (27.0-31.0); Mean Corpuscular Volume 91.2 fL (78.0-102.0); Mean Platelet Volume 9.3 fl (8.7-11.0); Monocytes Percent Auto 7.3 % (2.0-11.0); Neutrophils Absolute Auto 13.54 K/mm3 (1.70-7.20); Neutrophils Percent Auto 81.7 % (50.0-70.0); Platelet Count Result 282 K/mm3 (150-420); Red Blood Count 4.66 M/mm3 (4.70-6.10); White Blood Count 16.6 K/mm3 (4.8-10.8)
[2024-04-20 11:55] LABS: Appearance Urine Clear (Clear); Bilirubin Urine 1+ (Negative); Blood Urine Negative (Negative); Color Urine Dark Yellow (Yellow); Glucose Urine UA 1+ (Negative); Ketones Urine Trace (Negative); Leukocyte Esterase Ur Negative LEU/UL (Negative); Nitrate Urine Negative (Negative); Protein Urine 1+ (Negative); Specific Grav Ur >= 1.030 (1.010-1.020)
[2024-04-20 11:59] LABS: Hemoglobin A1C 5.7 % (<5.7)
[2024-04-20 12:03] LABS: Add Urine Microscopic? YES; Bacteria Urine None seen /hpf; RBC Urine None seen /hpf (0-2); Squamous Epithelial Cell Urine Many /hpf (Few); WBC Urine None seen /hpf (0-3)
[2024-04-20 12:04] LABS: Mucus Urine Heavy /lpf
[2024-04-20 13:02] LABS: Alanine Aminotransferase 35 U/L (16-63); Albumin Level 3.9 g/dL (3.4-5.0); Alkaline Phosphatase 66 U/L (46-116); Anion Gap 13 mmol/L (4-12); Aspartate Amino Transferase 16 U/L (15-37); Bilirubin,Total 0.5 mg/dL (0.00-1.00); Blood Urea Nitrogen 26 mg/dL (7-18); Calcium 9.3 mg/dL (8.5-10.1); Carbon Dioxide 23 mmol/L (21-32); Chloride 103 mmol/L (98-108); Cholesterol 121 mg/dL (0-200); Creatine Kinase 65 U/L (39-308); Estimated Glomerular Filt Rate > 60; Glucose 183 mg/dL (70-99); HDL Direct 49 mg/dL (40-60); LDL Cholesterol Calculated 58 mg/dL (<130); Osmolality Calculated 297 mOsm/kg (285-295); Potassium 3.9 mmol/L (3.5-5.1); Prostate Specific Antigen < 0.1 ng/mL (< OR = 4.0); Sodium 139 mmol/L (136-145); Triglycerides 68 mg/dL (0-150)
== END 2024-04-20 11:32 | disposition home or self-care (01) ==
PROVIDERS: PCP Internal Medicine; Visit Provider Internal Medicine
DX: E78.2 Mixed hyperlipidemia (principal); I10 Essential (primary) hypertension; N39.0 Urinary tract infection, site not specified; E11.65 Type 2 diabetes mellitus with hyperglycemia; Z12.5 Encounter for screening for malignant neoplasm of prostate
CPT/HCPCS: 36415; 80053; 80061; 81001; 82550; 83036; 84153; 85025; G0103

== ENCOUNTER 2024-05-10 09:14 | Outpatient (CLI) | payer MEDICARE, SELFPAY ==
[2024-05-10 09:30] LABS: Hematocrit 44.3 % (37.0-46.0); Mean Corpuscular HGB Conc 33.9 g/dL (32-36); Mean Corpuscular Hemoglobin 31.6 pg (27.0-31.0); Mean Corpuscular Volume 93.3 fL (78.0-102.0); Mean Platelet Volume 8.9 fl (8.7-11.0); Platelet Count Result 222 K/mm3 (150-420); Red Blood Count 4.75 M/mm3 (4.70-6.10); Red Cell Distribution Width 12.6 % (11.6-14.4); White Blood Count 9.5 K/mm3 (4.8-10.8)
[2024-05-10 09:31] LABS: Appearance Urine Clear (Clear); Bilirubin Urine 1+ (Negative); Blood Urine Negative (Negative); Color Urine Dark Yellow (Yellow); Glucose Urine UA Negative (Negative); Ketones Urine Trace (Negative); Leukocyte Esterase Ur Negative (Negative); Nitrate Urine Negative (Negative); Protein Urine Trace (Negative); Specific Grav Ur 1.025 (1.010-1.020)
[2024-05-10 10:02] LABS: Add Urine Microscopic? NO; Bacteria Urine Rare /hpf; Mucus Urine Moderate /lpf; RBC Urine None seen /hpf (0-2); WBC Urine None seen /hpf (0-3)
[2024-05-10 10:06] LABS: Alanine Aminotransferase 36 U/L (16-63); Albumin Level 3.8 g/dL (3.4-5.0); Alkaline Phosphatase 74 U/L (46-116); Amylase 33 U/L (25-115); Anion Gap 8 mmol/L (4-12); Aspartate Amino Transferase 18 U/L (15-37); Bilirubin,Total 1.1 mg/dL (0.00-1.00); Blood Urea Nitrogen 21 mg/dL (7-18); Calcium 9.1 mg/dL (8.5-10.1); Carbon Dioxide 26 mmol/L (21-32); Chloride 101 mmol/L (98-108); Estimated Glomerular Filt Rate > 60; Glucose 121 mg/dL (70-99); Lipase 34 U/L (16-77); Osmolality Calculated 284 mOsm/kg (285-295); Potassium 4.2 mmol/L (3.5-5.1); Sodium 135 mmol/L (136-145); Total Protein 6.6 g/dL (6.4-8.2)
== END 2024-05-10 09:15 | disposition home or self-care (01) ==
LOC: CHSLAB 09:16
PROVIDERS: PCP Internal Medicine; Visit Provider Internal Medicine
DX: R11.0 Nausea (principal); R30.0 Dysuria
CPT/HCPCS: 36415; 80053; 81003; 82150; 83690; 85027; 87086

== ENCOUNTER 2024-10-24 13:13 | Outpatient (CLI) | payer MEDICARE, SELFPAY ==
[2024-10-24 13:32] LABS: Basophils Absolute Auto 0.06 K/mm3 (0.00-0.10); Basophils Percent Auto 0.6 % (0.0-1.0); Eosinophils Percent Auto 0.9 % (1.0-6.0); Hematocrit 45.6 % (37.0-46.0); Hemoglobin 15.9 g/dL (12.4-15.3); Immature Granulocyte Absolute 0.14 K/mm3 (0.00-0.00); Immature Granulocyte Percent A 1.3 % (0.0-0.0); Lymphocytes Absolute Auto 2.17 K/mm3 (1.10-4.50); Lymphocytes Percent Auto 20.5 % (18.0-42.0); Mean Corpuscular HGB Conc 34.9 g/dL (32-36); Mean Corpuscular Hemoglobin 31.7 pg (27.0-31.0); Mean Platelet Volume 8.8 fl (8.7-11.0); Monocytes Absolute Auto 0.89 K/mm3 (0.10-0.90); Monocytes Percent Auto 8.4 % (2.0-11.0); Neutrophils Percent Auto 68.3 % (50.0-70.0); Platelet Count Result 244 K/mm3 (150-420); Red Blood Count 5.01 M/mm3 (4.70-6.10); Red Cell Distribution Width 13.2 % (11.6-14.4); White Blood Count 10.6 K/mm3 (4.8-10.8)
[2024-10-24 13:33] LABS: Add Urine Microscopic? NO; Appearance Urine Clear (Clear); Bilirubin Urine Negative (Negative); Blood Urine Negative (Negative); Color Urine Yellow (Yellow); Glucose Urine UA Negative (Negative); Ketones Urine Negative (Negative); Leukocyte Esterase Ur Negative LEU/UL (Negative); Nitrate Urine Negative (Negative); Protein Urine Negative (Negative); Specific Grav Ur >= 1.030 (1.010-1.020); Urobilinogen Urine 0.2 mg/dL (0.2-1.0)
[2024-10-24 14:06] LABS: Alanine Aminotransferase 38 U/L (16-63); Alkaline Phosphatase 79 U/L (46-116); Anion Gap 8 mmol/L (4-12); Aspartate Amino Transferase 18 U/L (15-37); Bilirubin,Total 0.7 mg/dL (0.00-1.00); Blood Urea Nitrogen 15 mg/dL (7-18); Calcium 9.6 mg/dL (8.5-10.1); Carbon Dioxide 29 mmol/L (21-32); Chloride 104 mmol/L (98-108); Cholesterol 146 mg/dL (0-200); Creatine Kinase 83 U/L (39-308); Estimated Glomerular Filt Rate > 60; Glucose 105 mg/dL (70-99); HDL Direct 56 mg/dL (40-60); LDL Cholesterol Calculated 63 mg/dL (<130); Osmolality Calculated 292 mOsm/kg (285-295); Potassium 4.3 mmol/L (3.5-5.1); Sodium 141 mmol/L (136-145); Total Protein 6.8 g/dL (6.4-8.2); Triglycerides 136 mg/dL (0-150)
[2024-10-25 09:58] LABS: Hemoglobin A1C 5.6 % (<5.7)
== END 2024-10-24 13:14 | disposition home or self-care (01) ==
PROVIDERS: PCP Internal Medicine; Visit Provider Internal Medicine
DX: E78.2 Mixed hyperlipidemia (principal); I10 Essential (primary) hypertension; E11.65 Type 2 diabetes mellitus with hyperglycemia; N39.0 Urinary tract infection, site not specified
CPT/HCPCS: 36415; 80053; 80061; 81003; 82550; 83036; 85025

== ENCOUNTER 2025-05-12 11:17 | Outpatient (CLI) | payer MEDICARE, SELFPAY ==
--- OUTSIDE RECORDS SUMMARY | 2025-05-12 11:23 | XMS_ITS | Data Portability ---
Author Organization [place] - [facility] [employer] [facility], Main Office Address [address] [place] [address] Assessment Encounter Date Assessment Date Assessment LastModified by Organization Details LastModified Time 05/10/2025 05/10/2025 75-year-old male presents for evaluation of his left hip and right shoulder. He reports that the hip has been bothering him about 3 months, getting progressively worse. The right shoulder has been giving him problems for years. He does have a history of a rotator cuff repair done with Dr. Pickard about 2 years ago. That is still giving him some problems. He can wear it pain is 7/10. He has not had any treatments for this. He has a history of stents and is on a baby aspirin. He also has a history diabetes with A1c level of 5.4. Review of systems per patient questionnaire he has tenderness palpation over the groin and posterior hip. He has restricted range of motion and pain with internal or external rotation. Positive Stinchfield. For his shoulder, he has tenderness over the AC joint, anterior shoulder, and lateral shoulder. Elevation to 100, external rotation 20, internal rotation back pocket. He has 4/5 rotator cuff strength with elevation. Positive Felisa. Positive Neer and Nicolas. X-rays of the hip were reviewed, demonstrating degenerative changes with osteoarthritis. X-rays of the shoulder were reviewed of the right side, demonstrating no acute bony abnormality we discussed that he has arthritis of the hip and some rotator cuff symptoms of the right shoulder. We will begin with a course of conservative management with physical therapy for both the hip and shoulder, Voltaren gel, and meloxicam. We will see him back in 6 weeks for recheck. At that point if he is has persistent symptoms we will plan to do a shoulder MRI. We would also plan to refer him for a hip fluoro guided injection if that was still bothering him. He is in agreement with the plan. [email or web address] Not available 05/11/2025 18:47:17 Plan of Treatment Reminders Order Date Submit Date Provider Last Modified By Organization Details Last Modified Time Details Appointments Any 5 2024 10:20A Katja Batista MD Not available Not available Not available Lab None recorded. Referral physical therapist referral - Please schedule for L hip. Thanks 2024 [facility], [address], [place], [address], 05/12/2025 09:28:15 physical therapist referral - Please schedule pt for R shoulder. Thanks 2024 [facility], [address], [place], [address], 05/12/2025 09:28:00 Procedures None recorded. Surgeries None recorded. Imaging XR, hip + pelvis, unilatera l, 2 or 3 view 2024 [email or web address] [facility] [place], [address], [place], [address], 05/11/2025 18:59:25 XR, shoulder, 2 or more view 2024 [email or web address] [facility] [place], [address], [place], [address], 05/11/2025 18:59:25 Medication Orders meloxicam 15 mg tablet 2024 [email or web address] [facility] #[id number], [address] [place], [address], 05/11/2025 18:59:25 Patient TargetsNo targets recorded. Patient InstructionsNo instructions recorded. Reason for Referral Physical Therapist Referral for Pain of hip region L hip Please schedule for L hip. Thanks Referring Physician: Seth Batista, Orthopedic Surgery, Encounter Date: 05/10/2025 Physical Therapist Referral for Pain of right shoulder joint R shoulder Please schedule pt for R shoulder. Thanks Referring Physician: Seth Batista, Orthopedic Surgery, Encounter Date: 05/10/2025 Results Created Date Observation Date Name Description Value Unit Range Abnormal Flag Note LastModifiedBy Organization Detail LastModifiedTime 05/10/20 25 XR, hip + pelvi s, unila teral , 2 or 3 view No observ ation record ed. [email or web address] [facility] [place] [address], [place], [address], 05/10/2025 09:54:37 05/10/20 25 XR, shoul tristen, 2 or more view No observ ation record ed. [email or web address] [facility] [place] [address], [place], [address], 05/10/2025 09:59:33 Result Notes None recorded. Problems Name Problem SNOMED Code Status Onset Date Resolution Date Notes Provider Name and Address Organization Details Recorded Time Pain of hip region 18767352 Active 2024 [facility] [employer] 5 09:54:31 Pain of right shoulder joint 707828846041731 00 Active 2024 [employer] 5 09:59:29 Problem Notes None recorded. Medical Equipment None Reported. Allergies No known drug allergies Medications Name Sig Start Date Stop Date Status Note LastModified by Organization Details LastModified Time carvedilol 6.25 mg tablet TAKE 1 TABLET BY MOUTH TWICE A DAY WITH MEALS active Not Available Not Available No t Available atorvastati n 20 mg tablet TAKE 1 TABLET BY MOUTH EVERY DAY DIRECTED active Not Available Not Available No t Available meloxicam 15 mg tablet Take 1 tablet every day by oral route. 2024 active Not Available Not Available Not Avai lable amlodipine 5 mg tablet TAKE 1 TABLET BY MOUTH EVERY DAY active Not Available Not Available No t Available omeprazole 40 mg capsule,del ayed release TAKE 1 CAPSULE BY MOUTH EVERY DAY BEFORE MEAL active Not Available Not Available No t Available OneTouch Ultra Test strips USE TO TEST GLUCOSE DAILY active Not Available Not Available No t Available benzonatate 100 mg capsule TAKE 2 CAPSULE (ORAL) EVERY 8 HOURS (COUGH) 05/10 completed Not Available Not Available Not Available lisinopril 10 mg tablet TAKE 1 TABLET BY MOUTH EVERY DAY active Not Available Not Available No t Available oxybutynin chloride ER 5 mg tablet,exte nded release 24 hr TAKE 1 TABLET (5 MG TOTAL) BY MOUTH DAILY. 05/10 completed Not Available Not Available Not Available zolpidem 5 mg tablet TAKE 1 TABLET BY MOUTH AT BEDTIME active Not Available Not Available No t Available oxybutynin chloride 5 mg tablet PLEASE SEE ATTACHED FOR DETAILED DIRECTION S active Not Available Not Available No t Available fluticasone propionate 50 mcg/actuati on nasal spray,suspe nsion SPRAY 2 SPRAYS INTO EACH NOSTRIL EVERY DAY 05/10 completed Not Available Not Available Not Available Lotemax 0.5 % eye ointment INSTILL 2MM STRIP INTO RIGHT EYE TWICE DAILY. active Not Available Not Available No t Available mirabegron ER 25 mg tablet,exte nded release 24 hr TAKE 1 TABLET (25 MG TOTAL) BY MOUTH DAILY. 05/10 completed Not Available Not Available Not Available Trelegy Ellipta 100 mcg-62.5 mcg-25 mcg powder for inhalation INHALE 1 PUFF BY MOUTH DAILY active Not Available Not Available No t Available OneTouch Ultra2 Meter USE TO TEST GLUCOSE ONCE DAILY active Not Available Not Available No t Available OneTouch Delica Plus Lancet 33 gauge USE TO TEST GLUCOSE ONCE DAILY active Not Available Not Available No t Available Ozempic 1 mg/dose (4 mg/3 mL) subcutaneou s pen injector INJECT 1 MG BY SUBCUTANE OUS ROUTE ONCE WEEKLY ON THE SAME DAY OF EACH WEEK active Not Available Not Available No t Available Vitals Date Recorded Body height Body mass index (BMI) Body weight Provider Name and Address Organization Details Last Updated DateTime 05/10/2025 177.8 cm 29.4 kg/m2 73799.44 g America Villagomez [place] [facility] [employer] [facility] 05/10/2025 09:51:07 Social History Question Answer Notes LastModified by Organizat ion Details LastModified Time Tobacco Smoking Status Never Smoker America Villagomez marii [place] - [facility] 05/10/2025 09:53:05 What Was The Date Of Your Most Recent Tobacco Screening? 05/10/2025 [email or web address] Information not available 05/10/2025 Sex: Unknown Functional Status None recorded. Mental Status None recorded. Family History Nothing Reported Notes:Cancer: Brother Medical History Condition Response CANCER: SPECIFY Y HEPATITIS / LIVER DISEASE Y DIABETES, TYPE Y URINARY/BLADDER/KIDNEY PROBLEMS Y COPD Y Past Encounters Encounter ID Performer Location Encounter Start Date Encounter Closed Date Diagnosis/Indication Diagnosis SNOMED-CT Code Diagnosis ICD10 Code Diagnosis Note [id number] Seth Batista MD [facility] [place] [address] [place] [address] 05/10/2025 09:38:43 05/10/2025 10:50:30 Pain of hip region 76441506 M25.552 Pain of ri ght shoulder joint 9704602130 4577955 M25.511 Health Concerns Section Related Observation LastModified by Organization Detai ls LastModified Time None Recorded Concern Status LastModified by Organization Details LastModified Time None Recorded Advance Directives Directive None Recorded Payers Insurance Date Sequence Insurance Name Policy Number Policy Tom Covered Member ID Tom Member ID Guarantor Name 05/09/2025 1 [employer] (MEDICARE REPLACEMENT/ ADVANTAGE - PPO) [id number] Seun Lemus [id number] Seun Lemus 05/08/2025 1 [place] Seun Lemus [id number] Seun Lemus
--- OUTSIDE RECORDS SUMMARY | 2025-05-12 11:23 | XMS_ITS | Encounter Summary ---
Author Organization [facility] Address [address] [place] [address] Phone Care Team Providers Care Regional Sales Consultant Name Role Phone Rosaline Banegas MD Primary Care Provider [phone] Edy Salgado MD Unavailable Seun Harrison MD Unavailable Encounter Details Date Type Department Care Team (Late st Contact Info) Description 04/25/2025 Results Follow-Up [facility] Cardiology [facility] Medical Office Building [address] [place] [address] Franny Aragon RMA Basic metabolic panel, Lipid panel, CBC with auto differential, Additional followed-up results: 2 Social History Tobacco Use Types Packs/Day Years Used Date Smoking Tobacco: Former Cigarettes 1.3 40 1 963 - 2003 Smokeless Tobacco: Never AUDIT-C Answer Date Recorded Q1: How often do you have a drink containing alcohol? Never 06/15/2024 Q2: How many drinks containi ng alcohol do you have on a typical day when you are drinking? Patient does not drink Q3: How often do you have si x or more drinks on one occasion? Never 06/15/2024 PHQ-2 Answer Date Recorded PHQ-2 Total Score (If total score is 3 or more points, staff should administer the PHQ-9) 0 11/21/2024 Personal Safety Answer Date Recorded Have you ever been in or are you currently in a harmful physical or emotional relationship or is someone making you feel afraid or unsafe? Denies 06/15/2024 Sex and Gender Information Value Date Recorded Sex Assigned at Not on file Legal Sex Male 1:23 AM OCC THERAPY ASST Gender Identity Not on file Sexual Orientation Not on file documented as of this encounter Plan of Treatment Not on file documented as of this encounter Visit Diagnoses Not on filedocumented in this encounter Care Teams Regional Sales Consultant Relationship Specialty Start Date End Date Rosaline Banegas MD PCP - General Internal Medicine 02/24/19 Edy Salgado MD [address] [place] [address] Consulting Physician Radiation Oncology 12/04/22 Suen Harrison MD [address] [place] [address] Consulting Physician Surgery 02/08/24 documented as of this encounter
--- OUTSIDE RECORDS SUMMARY | 2025-05-12 11:23 | XMS_ITS | Encounter Summary ---
Author Organization [facility] Address [address] [place] [address] Phone Care Team Providers Care Interior Decorator Paperhanging Name Role Phone Rosaline Banegas MD Primary Care Provider + [phone] Edy Salgado MD Unavailable Seun Harrison MD Unavailable Encounter Details Date Type Department Care Team (Latest Contact Info) Description 09/01/2019 Orders Only [facility] Scanning, Provider Social History Tobacco Use Types Packs/Day Years Used Date Smoking Tobacco: Former Smokeless Tobacco: Never Sex and Gender Information Value Date Recorded Sex Assigned at Not on file 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 Gender Identity Not on file Sexual Orientation Not on file documented as of this encounter Plan of Treatment Not on file documented as of this encounter Procedures Procedure Name Priority Date/Time Associated Diagnosis Comments SCAN - LABS 09/01/2019 documented in this encounter Results * SCAN - LABS (09/01/2019) us Provider Scanning Final Result documented in this encounter Visit Diagnoses Not on filedocumented in this encounter Care Teams Interior Decorator Paperhanging Relationship Specialty Start Date End Date Rosaline Banegas MD PCP - General Internal Medicine 02/24/19 Edy Salagdo MD [address] [place] [address] Consulting Physician Radiation Oncology 12/04/22 Seun Harrison MD [address] [place] [address] Consulting Physician Surgery 02/08/24 documented as of this encounter
--- OUTSIDE RECORDS SUMMARY | 2025-05-12 11:23 | XMS_ITS | Encounter Summary ---
Author Organization [facility] Address [address] [place] [address] Phone Care Team Providers Care Assistant Food Service Director Name Role Phone Rosaline Banegas MD Primary Care Provider + [phone] Edy Salgado MD Unavailable [phone] Seun Harrison MD Unavailable [phone] Encounter Details Date Type Department Care Team (Latest Contact Info) Description 02/21/2021 Orders Only [facility]OLOG[facility] Scanning, Provider Social History Tobacco Use Types Packs/Day Years Used Date Smoking Tobacco: Former Smokeless Tobacco: Never Sex and Gender Information Value Date Recorded Sex Assigned at Not on file 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 Gender Identity Not on file Sexual Orientation Not on file documented as of this encounter Plan of Treatment Not on file documented as of this encounter Procedures Procedure Name Priority Date/Time Associated Diagnosis Comments SCAN - LABS 02/21/2021 documented in this encounter Results * SCAN - LABS (02/21/2021) us Provider Scanning Final Result documented in this encounter Visit Diagnoses Not on filedocumented in this encounter Care Teams Assistant Food Service Director Relationship Specialty Start Date End Date Rosaline Banegas MD PCP - General Internal Medicine 02/24/19 Edy Salgado MD [address] [place] [place] [address] Consulting Physician Radiation Oncology 12/04/22 Seun Harrison MD [address] [place] [address] Consulting Physician Surgery 02/08/24 documented as of this encounter
--- OUTSIDE RECORDS SUMMARY | 2025-05-12 11:23 | XMS_ITS | Clinical Summary ---
Author Organization [facility] Address [address] [place] [address] Care Team Providers Care Windows Desktop Engineer Name Role Phone Unavailable Primary Care Provider Unavailabl e Social History Tobacco Use Types Packs/Day Years Used Date Smoking Tobacco: Former Sex and Gender Information Value Date Recorded Sex Assigned at Not on file Legal Sex Male 8:29 PM CDT Gender Identity Not on file Sexual Orientation Not on file Last Filed Vital Signs Vital Sign Reading Time Taken Comments Blood Pressure 126/72 03/10/2017 11:55 AM CDT Pulse 84 03/10/2017 11:55 AM CDT Temperature - - Respiratory Rate - - Oxygen Saturation - - Inhaled Oxygen Concentration - - Weight 116.6 kg (257 lb) 03/10/2017 11:55 AM CDT Height 180.3 cm (5' 11) 03/10/2017 11:55 AM CDT Body Mass Index 35.84 03/10/2017 11:55 AM CDT Plan of Treatment Health Maintenance Due Date Last Done Comments Colorectal Cancer Screening Colonoscopy (10 Years) 1950 Hepatitis C 01/27/1970 DTaP, Tdap and Td Vaccines ( 1 - Tdap) 01/27/1971 Zoster Vaccines (1 of 2) 01/27/2002 Pneumococcal Vaccine: 50+ Ye ars (2 of 2 - PCV) 09/25/2016 09/25/2015 COVID-19 Vaccine ( - 2023-2 5 season) 2024 RSV Immunization or 60+ Years (1 - 1-dose 75+ series) 01/27/2027 Meningococcal B Vaccine Aged Out No l onger eligible based on patient's age to complete this topic Meningococcal Vaccine Aged Out No stevo jitendra eligible based on patient's age to complete this topic RSV Immunizations Under 20 Months Aged Out No longer eligible based on patient's age to complete this topic
--- OUTSIDE RECORDS SUMMARY | 2025-05-12 11:23 | XMS_ITS ---
Author Organization [facility] Address [address] [place] [address] Phone Care Team Providers Care Staffing And Scheduling Coordinator Name Role Phone Rosaline Banegas MD Primary Care Provider dEy Salgado MD Unavailable [phone] Seun Harrison MD Unavailable Active Problems Problem Noted Date Diagnosed Date Other insomnia 11/21/2024 COPD (chronic obstructive pulmonary disease) 02/2024 Assessment & Plan (05/19/2024 9:10 AM CDT): Recent HRCT and PFTs do NOT suggest significant COPD to explain his dyspnea Trelegy has not led to significant improvement Recs: 1) Continue trelegy 2) Discussed with Dr. Banegas and Dr. Lemus and asked about R and LHC 3) Stay as active as able 4) Stay uptodate with health maintenance/vaccinations Assessment & Plan (02/17/2024 9:52 AM CDT): Possible etiology for his exertional dyspnea - trelegy has NOT helped - cardiac stress testing is negative - last hemoglobin from 2021 was normal -wt has remained stable Recs: 1) Continue trelegy 2) Will discuss with Dr. Banegas re: echo and stress test 3) PRN albuterol 4) Stay as active as able 5) Stay uptodate with health maintenance/vaccinations Assessment & Plan (12/29/2023 3:52 PM HEAD INSPECTOR): Possible etiology for his exertional dyspnea - was feeling better while taking symbicort and spiriva - cardiac stress testing is negative - last hemoglobin from 2021 was normal -wt has remained stable Discussed possible workup including CT chest (PET scan from 2022 was ok), PFTs or doing a therapeutic trial with inhalers. After discussion and shared decision making, we have decided to start with inhalers Recs: 1) Trelegy trial 2) PRN albuterol 3) Stay as active as able 4) Stay uptodate with health maintenance/vaccinations Class 1 obesity due to exces s calories without serious comorbidity with body mass index (BMI) of 34.0 to 34.9 in adult 12/29/2023 Assessment & Plan (12/29/2023 3:55 PM HEAD INSPECTOR): Diet and lifestyle modifications discussed to achieve weight loss Ozempic was helpful in the past. Was discontinued due to side effects -- asked him to call Dr. Banegas (PCP) to discuss reinitiation of medications Benign prostatic hyperplasia with lower urinary tract symptoms 11/20/2023 Contusion of right lesser to e(s) with damage to nail, subsequent encounter 09/30/2023 Assessment & Plan (09/30/2023 9:12 AM HEAD INSPECTOR): Will continue to monitor the 2nd digit right foot. If continued issues and no distal migration of suspected subungual hematoma, I'd recommend nail avulsion to examine nail bed. Plantar fascial fibromatosis 09/22/2023 Assessment & Plan (10/27/2023 10:33 AM HEAD INSPECTOR): We discussed further treatment options as he continues to have pain to his left heel. I have recommended an open plantar fasciotomy with heel spur resection. At this time he would prefer to trial 1 more injection to see if he will have improvement. If he does not have improvement with the injection then I am recommending surgical intervention. He is to continue appropriate inserts, shoe gear, stretches. Assessment & Plan (09/30/2023 10:00 AM HEAD INSPECTOR): He had minimal response to the steroid injection of the visit. We discussed further treatments involving formal physical therapy and other anti-inflammatories. He stated that he had already failed physical therapy. I have recommended surgical treatment involving an open versus endoscopic plantar fasciotomy of the left foot. I also advocated for a infracalcaneal exostectomy. At this time he stated he would not be able to pursue surgery until next year. I have prescribed a Medrol Dosepak side effects discussed. He is to monitor for issues. He is to continue home stretching exercises. Assessment & Plan (09/22/2023 2:41 PM HEAD INSPECTOR): He has noted acute on chronic plantar fasciitis left foot. Performed steroid injection without incident. Provided stretching instructions as well as information about plantar fasciitis. Discussed further treatment options involving orthotics, physical therapy, stretching exercises, and surgical management. I explained that surgical management could entail an endoscopic versus open plantar fasciotomy with possible heel spur resection. I have placed an order to have his older orthotics refurbished. I explained that his current orthotics still fit is fit appropriately and the shell is still intact. If he starts to notice that the shows breaking down or that he is having rocking on the orthotic that I would recommend a new pair of custom orthotics. Left foot pain 09/22/2023 Right foot pain 09/22/2023 Calcaneal spur of left foot 09/22/2023 Assessment & Plan (09/30/2023 10:01 AM HEAD INSPECTOR): This is chronic in nature. Plan would be to resect this surgically once the patient is agreeable to surgery. Assessment & Plan (09/22/2023 2:39 PM HEAD INSPECTOR): Discussed about possible surgical management of continued issues involving an exostectomy of the infracalcaneal exostosis. Contusion of right lesser to e(s) with damage to nail, initial encounter 09/22/2023 Assessment & Plan (09/22/2023 2:40 PM HEAD INSPECTOR): He is noted history of a contusion to his right 2nd digit with noted subungual hematoma. He stated that this had been there for some time so there has been some more concern as the nail has not grown normally as well as the suspected subungual hematoma has not grown out with the nail. I explained that I would recommend removal of the toenail to investigate the nail bed and make sure that there are no cancerous lesions. He verbalized understanding and will consider this at next visit. Prostate cancer 03/19/2023 Coronary artery disease invo lving [place] [employer] coronary artery of match[place] heart without angina pectoris 09/28/2022 Memory loss 02/28/2022 Assessment & Plan (06/20/2022 9:43 AM CDT): At this point the patient's cognitive functioning appears to be in the range for mild cognitive impairment. We have more in-depth neuro psychological evaluation scheduled for July. I would like to see him back a few weeks after that is complete to go over the results. Assessment & Plan (02/28/2022 9:25 AM CDT): Patient is a 72-year-old right-handed gentleman with short-term memory deficits. On exam he does not appear to have dementia, but more likely could mild cognitive impairment. At this point I would like to review the MRI done earlier this year. I am request those records. I will also do blood work looking for possible causes of mental status change. Finally, I will obtain neuro psychological testing. If this does point to a dementia such as Alzheimer's, we will proceed with a lumbar puncture. This was discussed briefly today. I will see him back after the neuro psychological testing is complete. My total encounter time on 02/28/2022 was 63 minutes which was spent in the activities documented in the note. This includes time spent prior to the visit and after the visit in direct care of the patient. This time does not include time spent in any separately reportable services. 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 Obesity with body mass index 30 or greater 04/20 Assessment & Plan (05/19/2024 9:10 AM CDT): Losing weight with help of ozempic Recs: 1) Continue diet and lifestyle modifications Obstructive sleep apnea syndrome 04/26/2014 Assessment & Plan (05/19/2024 9:10 AM CDT): Using CPAP with good benefit Recs: 1) Continue Assessment & Plan (02/17/2024 9:44 AM CDT): Using CPAP with good benefit Recs: 1) Continue Assessment & Plan (12/29/2023 3:52 PM HEAD INSPECTOR): Using CPAP with good benefit Recs: 1) Continue Chronic coronary artery disease 03/11/2011 Overview (02/04/2018): Description: Multi-vessel Coronary Artery Stenosis Assessment & Plan (06/06/2024 7:04 PM CDT): He has remote LAD stenting and progressive symptoms of chest pain reminiscent to prior angina and exertional dyspnea that is unexplained by non coronary workup. Therefore recommend diagnostic cath and possible PCI if appropriate. - [facility] possible PCI (MDM: major surgery with patient specific risk factors of DM2) - continue asa 81, coreg 6.25 bid, atorva 20 Combined forms of age-related cataract 0 Nuclear senile cataract 03/04/2010 Secondary open-angle glaucoma 02/18/2010 Scleritis Overview (04/13/2018): OS Pterygium eye, right Ocular hypertension of right eye Cataract Current Treatment and Therapy Plans No current plan information found. Past Treatment and Therapy Plans No past plan information found. Radiation Treatments * Course C1 05/05/2023 - 06/11/2023 Treatment Period Energy Fraction Dose Fractions Total Dose Plans Planned Prostate_SVs 05/05/2023 - 06/11/2023 250 28 / 7,000 Reference Points Delivered DVP_Prostate_SVs 05/05/2023 - 06/11/2023 7,000 Lifetime Dose Tracking * Chemical Lifetime Dose Automatic Entry Manual Entr y Air kerma at the reference point (Ka,r) 1,049.09 mGy 0 mGy 1,049.09 mGy Resolved Problems Problem Noted Date Diagnosed Date Resolved Date Shortness of breath 07/07/2014 12/29/19 24 Calcific aortic stenosis of bicuspid valve 10/03/2013 04/08/2023
--- OUTSIDE RECORDS SUMMARY | 2025-05-12 11:23 | XMS_ITS | Encounter Summary ---
Author Organization [facility] Address [address] [place] [address] Phone Care Team Providers Care Inside Polisher Name Role Phone Rosaline Banegas MD Primary Care Provider [phone] Edy Salgado MD Unavailable [phone] Seun Harrison MD Unavailable Encounter Details Date Type Department Care Team (Latest Contact Info) Description 05/31/2019 Orders Only [facility] Scanning, Provider Social History Tobacco Use Types Packs/Day Years Used Date Smoking Tobacco: Former Smokeless Tobacco: Never Sex and Gender Information Value Date Recorded Sex Assigned at Not on file Legal 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 Gender Identity Not on file Sexual Orientation Not on file documented as of this encounter Plan of Treatment Not on file documented as of this encounter Procedures Procedure Name Priority Date/Time Associated Diagnosis Comments SCAN - LABS 05/31/2019 documented in this encounter Results * SCAN - LABS (05/31/2019) us Provider Scanning Final Result documented in this encounter Visit Diagnoses Not on filedocumented in this encounter Care Teams Inside Polisher Relationship Specialty Start Date End Date Rosaline Banegas MD PCP - General Internal Medicine 02/24/19 Edy Salgado MD [address] [place] [address] Consulting Physician Radiation Oncology 12/04/22 Seun Harrison MD [address] [place] [address] Consulting Physician Surgery 02/08/24 documented as of this encounter
--- OUTSIDE RECORDS SUMMARY | 2025-05-12 11:23 | XMS_ITS | Clinical Summary ---
Author Organization [facility] Address [address] [place] [address] Care Team Providers Care Hospice Office Coordinator Name Role Phone Rosaline Banegas MD Primary Care Provider [phone] Source Comments [facility],non-owned Affiliates and Associated Physician Practices is amultiple site organization consisting of ambulatory clinics and hospital sitesin [place], [place], [place] and [place]. This disclosure is being madepursuant to the Care Everywhere program and may not contain all information available regarding this patient. Last updated 18.[facility] Allergies No known active allergies Medications * Be aware that medications may not be up to date on this document. Alwaysverify current medications with the patient. metoprolol succinate XL 24hr (TOPROL XL) 50 MG tablet Take 25 mg by mouth once daily Active omeprazole (PRILOSEC) 40 MG capsule Take 1 (one) capsule by mouth daily before breakfast Active amLODIPine (NORVASC) 5 MG tablet Take 1 (one) tablet by mouth once daily Active atorvastatin (Lipitor) 40 MG tablet Take 1 (one) tablet by mouth once daily 2 Active Symbicort 160-4.5 MCG/ACT inhaler Inhale 2 (two) puffs by mouth once daily 2 Active Spiriva HandiHaler 18 MCG inhalation capsule Inhale 1 (one) capsule by mouth once daily 2 Active silodosin (Rapaflo) 8 MG capsuleIndicatio ns:Benign prostatic hyperplasia, unspecified whether lower urinary tract symptoms present TAKE ONE CAPSULE BY MOUTH EVERY MORNING 30 capsule 1 3 Active Additional Information Patient not taking.Reported on 12/03/2022 lisinopril (Prinivil; Zestril) 10 MG tablet Take 1 (one) tablet by mouth once daily 2 Active Active Problems No known active problems Social History Tobacco Use Types Packs/Day Years Used Date Smoking Tobacco: Former Cigarettes Q uit: 2004 Smokeless Tobacco: Never Tobacco Cessation:Counseling Given: Not Answered Alcohol Use Standard Drinks/Week Comments No 0 (1 standard drink = 0.6 oz pur e alcohol) Sex and Gender Information Value Date Recorded Sex Assigned at Not on file Legal Sex Male 11:45 AM RN OUTPATIENT SURGERY Gender Identity Not on file Sexual Orientation Not on file Last Filed Vital Signs Vital Sign Reading Time Taken Comments Blood Pressure 120/72 12/03/2022 3:51 PM RN OUTPATIENT SURGERY Pulse 77 12/03/2022 3:51 PM RN OUTPATIENT SURGERY Temperature 36.4 C (97.5 F) 11/27/2022 11:33 AM RN OUTPATIENT SURGERY Respiratory Rate 18 11/27/2022 11:3 3 AM RN OUTPATIENT SURGERY Oxygen Saturation 97% 12/03/2022 3:51 PM RN OUTPATIENT SURGERY Inhaled Oxygen Concentration - - Weight 113.6 kg (250 lb 6.4 oz) 12/03/2022 3:51 PM RN OUTPATIENT SURGERY Height 180.3 cm (5' 11) 12/03/2022 3:51 PM RN OUTPATIENT SURGERY Body Mass Index 34.92 12/03/2022 3:51 PM RN OUTPATIENT SURGERY Plan of Treatment Health Maintenance Due Date Last Done Comments COLOGUARD (AGES 45-75) - COLON CA SCREENING 1950 CT COLONOGRAPHY - COLON CA SCREENING 1950 FIT - COLON CA SCREENING 1950 FLEX SIG - COLON CA SCREENING 1950 HEPATITIS C SCREENING 01/23/1970 DTAP/TDAP/TD VACCINES (1 - Tdap) 01/27/1971 PNEUMOCOCCAL VACCINE 50+ (1 of 1 - PCV) 01/27/2002 ZOSTER VACCINE (1 of 2) 01/27/2002 AAA SCREENING 01/27/2017 COVID-19 VACCINE (3 - season) 2024 07/09/2020, 06/11/2020 EGD SURVEILLANCE 07/04/2024 12/09/2018, , 12/09/2018, Additional history exists DEPRESSION SCREENING 10/26/2024 MEDICARE AWV CALENDAR YEAR 2024 INFLUENZA VACCINE (#1) 2025 2, 08/21/2020, 08/04/2019, Additional history exists SCREENING FOR DIABETES 09/23/2025 09/23/2022 Respiratory Syncytial Virus (RSV) Vaccine Pt: or over 60 yrs (1 - 1-dose 75+ series) 01/27/2027 COLON MONITORING 12/09/2028 12/09/2018, , 12/09/2018 COLONOSCOPY - COLON CA SCREENING 12/09/2028 12/09/2018, 12/09/2018, 12/09/2018 Colorectal Cancer Screening 12/09/2028 HEPATITIS B VACCINE Aged Out No longe r eligible based on patient's age to complete this topic HIB VACCINE Aged Out No longer eligi ble based on patient's age to complete this topic HPV VACCINE Aged Out No longer eligi ble based on patient's age to complete this topic MENINGOCOCCAL (Group B) VACCINE SHARED DECISION-MAKING Aged Out No longer eligible based on patient's age to complete this topic MENINGOCOCCAL GROUPS A/C/Y/W VACCINE Aged Out No longer eligible based on patient's age to complete this topic Procedures Procedure Name Priority Date/Time Associated Diagnosis Comments EGD Routine 12/09/2018 1:28 PM RN OUTPATIENT SURGERY ENDOSCOPY, COLON, SCREENING Routine 12/09/2018 1:27 PM RN OUTPATIENT SURGERY from Last 3 Months or Most Recently Relevant to Health Maintenance Results * EGD (12/09/2018 1:28 PM RN OUTPATIENT SURGERY) Report Endoscopy POC __ _ Patient Name: Lemus Seun Procedure Date: 12/09/2018 1:28 PM Date of : 1950 Admit Type: Outpatient Age: 68 Room: ROOM 1 Gender: Male Note Status: Finalized Attending MD: Davonte Gregg MD __ _ Procedure: Upper GI endoscopy Indications: Epigastric abdominal pain, Heartburn Providers: Davonte Gregg MD, Noreen Donato RN, Kayla Jorgensen RN, Sergey Smith CRNA (Anesthesia Staff) Medicines: Propofol per Anesthesia Complications: No immediate complications. __ _ Procedure: After obtaining informed consent, the endoscope was passed under direct vision. Throughout the procedure, the patient's blood pressure, pulse, and oxygen saturations were monitored continuously. The GIF-[id number] SN [id number] was introduced through the mouth, and advanced to the third part of duodenum. Findings: The Z-line was irregular and was found at the gastroesophageal junction. Biopsies were taken with a cold forceps for histology. Otherwise, normal esophageal mucosa. One small sessile polyp with no stigmata of recent bleeding was found at the gastroesophageal junction. The polyp was removed with a hot biopsy forceps. Resection and retrieval were complete. Otherwise, normal gastric mucosa. The examined duodenum was normal. __ _ Impression: - Z-line irregular, at the gastroesophageal junction. Biopsied. - One gastroesophageal junction polyp. Resected and retrieved. - Normal examined duodenum. Recommendation: - Await pathology results. - Use a proton pump inhibitor PO daily. - Observe patient's clinical course. Procedure Code(s): --- Professional --- 71606, Esophagogastroduode noscopy, flexible, transoral; with removal of tumor(s), polyp(s), or other lesion(s) by hot biopsy forceps 16857, 59, Esophagogastroduode noscopy, flexible, transoral; with biopsy, single or multiple --- Technical --- 10662, Esophagogastroduode noscopy, flexible, transoral; with removal of tumor(s), polyp(s), or other lesion(s) by hot biopsy forceps 53127, 59, Esophagogastroduode noscopy, flexible, transoral; with biopsy, single or multiple Diagnosis Code(s): --- Professional --- K22.8, Other specified diseases of esophagus K31.7, Polyp of stomach and duodenum R10.13, Epigastric pain R12, Heartburn --- Technical --- K22.8, Other specified diseases of esophagus K31.7, Polyp of stomach and duodenum R10.13, Epigastric pain R12, Heartburn CPT copyright 2017 [employer]. All rights reserved. The codes documented in this report are preliminary and upon youth accommodation support worker review may be revised to meet current compliance requirements. __ Davonte Gregg MD 12/09/2018 1:59:45 PM This report has been signed electronically. Number of Addenda: 0 Note Initiated On: 12/09/2018 1:28 PM Estimated Blood Loss: Estimated blood loss: none. [facility] ENDOSCOPY 12/09/2018 1:28 PM RN OUTPATIENT SURGERY us Davonte Gregg MD GI PROCEDURE ORDERABLES Edit ed Result - Final [facility] ENDOSCOPY * ENDOSCOPY, COLON, SCREENING (12/09/2018 1:27 PM RN OUTPATIENT SURGERY) Report Endoscopy POC _ Patient Name: Seun Lemus Procedure Date: 12/09/2018 1:27 PM Date of : 1950 Admit Type: Outpatient Age: 68 Room: ROOM 1 Gender: Male Note Status: Finalized Attending MD: Davonte Gregg MD _ Procedure: Colonoscopy Indications: Screening for colorectal malignant neoplasm, This is the patient's first colonoscopy Providers: Davonte Gregg MD, Noreen Donato RN, Kayla Jorgensen, RN, Sergey Smith CRNA (Anesthesia Staff) Medicines: Propofol per Anesthesia Complications: No immediate complications. _ Procedure: After I obtained informed consent, the scope was passed under direct vision. Throughout the procedure, the patient's blood pressure, pulse, and oxygen saturations were monitored continuously. The [id number] SN [id number] was introduced through the anus and advanced to the terminal ileum. The quality of the bowel preparation was adequate. Findings: The terminal ileum appeared normal. A 3 mm polyp was found in the transverse colon. The polyp was sessile. The polyp was removed with a hot biopsy forceps. Resection and retrieval were complete. Hemorrhoids were found. The exam was otherwise without abnormality. _ Impression: - The examined portion of the ileum was normal. - One 3 mm polyp in the transverse colon, removed with a hot biopsy forceps. Resected and retrieved. - Hemorrhoids. - The examination was otherwise normal. Recommendation: - High fiber diet. - Repeat colonoscopy in 5 years for surveillance. Procedure Code(s): --- Professional --- 76918, Colonoscopy, flexible; with removal of tumor(s), polyp(s), or other lesion(s) by hot biopsy forceps --- Technical --- 27485, Colonoscopy, flexible; with removal of tumor(s), polyp(s), or other lesion(s) by hot biopsy forceps Diagnosis Code(s): --- Professional --- Z12.11, Encounter for screening for malignant neoplasm of colon K64.9, Unspecified hemorrhoids D12.3, Benign neoplasm of transverse colon (hepatic flexure or splenic flexure) --- Technical --- Z12.11, Encounter for screening for malignant neoplasm of colon K64.9, Unspecified hemorrhoids D12.3, Benign neoplasm of transverse colon (hepatic flexure or splenic flexure) CPT copyright 2017 [employer]. All rights reserved. The codes documented in this report are preliminary and upon youth accommodation support worker review may be revised to meet current compliance requirements. Davonte Gregg MD 12/09/2018 2:01:30 PM This report has been signed electronically. Number of Addenda: 0 Note Initiated On: 12/09/2018 1:27 PM Estimated Blood Loss: Estimated blood loss: none. [facility] ENDOSCOPY 12/09/2018 1:27 PM RN OUTPATIENT SURGERY us Davonte Gregg MD GI PROCEDURE ORDERABLES Edit ed Result - Final [facility] from Last 3 Months or Most Recently Relevant to Health Maintenance Insurance [employer] MEDICARE ADV Care Teams Hospice Office Coordinator Relationship Specialty Start Date End Date Rosaline Banegas MD [address] [place] [address] PCP - General Internal Medicine 11/27/22
--- OUTSIDE RECORDS SUMMARY | 2025-05-12 11:23 | XMS_ITS | Clinical Summary ---
Author Organization [facility] Address [address] [place] [address] Phone Care Team Providers Care Installer Name Role Phone Rosaline Banegas MD Primary Care Provider Edy Salgado MD Unavailable Seun Harrison MD Unavailable Allergies No known active allergies Medications aspirin 81 mg tablet Take 1 tablet (81 mg total) by mouth daily Active omeprazole (PriLOSEC) 40 mg capsule Take 1 capsule (40 mg total) by mouth daily 90 capsule 1 01/13/20 20 Active fluticasone-um eclidin-vilant er (Trelegy Ellipta) 200-62.5-25 mcg inhalerIndicat ions:Chronic obstructive pulmonary disease, unspecified COPD type (HCC) Inhale 1 puff daily 180 each 3 02/23/20 24 Active Additional Information Patient not taking.Reported on 04/24/2025 atorvastatin (LIPITOR) 20 mg tablet Take 1 tablet (20 mg total) by mouth daily 12/24/19 24 Active magnesium oxide (MAG-OX) 250 mg (150.8 mg elemental) tabletIndicati ons:hypomagnes emia Take 1 tablet (250 mg total) by mouth daily 90 tablet 3 03/16/20 24 Active Additional Information Patient not taking.Reported on 04/24/2025 carvediloL (COREG) 6.25 mg tablet Take 1 tablet (6.25 mg total) by mouth 2 (two) times a day with meals 180 tablet 3 03/16/20 24 Active fluticasone propionate (FLONASE) 50 mcg/actuation nasal spray Administer 2 sprays into each nostril daily 1 each 5 09/01/20 24 Active Additional Information Patient not taking.Reported on 04/24/2025 Ozempic 1 mg/dose (4 mg/3 mL) pen injector injection INJECT 1 MG BY SUBCUTANEOUS ROUTE ONCE WEEKLY ON THE SAME DAY OF EACH WEEK 09/29/20 24 Active mirabegron ER (MYRBETRIQ) 25 mg tablet extended release 24 hrIndications: Increased Urinary Frequency,Urin marcel Urge Incontinence,U rinary Urgency TAKE 1 TABLET (25 MG TOTAL) BY MOUTH DAILY. 30 tablet 1 11/01/19 25 Active Additional Information Patient not taking.Reported on 04/24/2025 zolpidem (AMBIEN) 5 mg tabletIndicati ons:Sleep-Onse t Insomnia Take 1 tablet (5 mg total) by mouth nightly as needed for sleep 30 tablet 4 11/22/19 25 026 Active amLODIPine (NORVASC) 5 mg tablet TAKE 1 TABLET BY MOUTH EVERY DAY 90 tablet 3 05/01/20 25 Active lisinopriL (PRINIVIL,ZEST RIL) 10 mg tablet TAKE 1 TABLET BY MOUTH EVERY DAY 90 tablet 3 05/01/20 25 Active amLODIPine (NORVASC) 5 mg tablet TAKE 1 TABLET BY MOUTH EVERY DAY 90 tablet 3 03/28/20 24 025 Discontinued lisinopriL (PRINIVIL,ZEST RIL) 10 mg tablet TAKE 1 TABLET BY MOUTH EVERY DAY 90 tablet 3 04/11/20 24 025 Discontinued Active Problems Problem Noted Date Diagnosed Date Other insomnia 11/21/2024 COPD (chronic obstructive pulmonary disease) 02/2024 Assessment & Plan (05/19/2024 9:10 AM CDT): Recent HRCT and PFTs do NOT suggest significant COPD to explain his dyspnea Trelegy has not led to significant improvement Recs: 1) Continue trelegy 2) Discussed with Dr. Bnaegas and Dr. Lemus and asked about R [...] maintenance/vaccinations Assessment & Plan (12/29/2023 3:52 PM AUTO SLIP COVER INSTALLER): Possible etiology for his exertional dyspnea - [...] 12/29/2023 Assessment & Plan (12/29/2023 3:55 PM AUTO SLIP COVER INSTALLER): Diet and lifestyle modifications discussed to achieve weight loss Ozempic was helpful in the past. Was discontinued due to side effects -- asked him to call Dr. Banegas (PCP) to discuss reinitiation of medications Benign prostatic hyperplasia with lower urinary tract symptoms 11/20/2023 Contusion of right lesser to e(s) with damage to nail, subsequent encounter 09/30/2023 Assessment & Plan (09/30/2023 9:12 AM AUTO SLIP COVER INSTALLER): Will continue to monitor the 2nd digit right foot. If continued issues and no distal migration of suspected subungual hematoma, I'd recommend nail avulsion to examine nail bed. Plantar fascial fibromatosis 09/22/2023 Assessment & Plan (10/27/2023 10:33 AM AUTO SLIP COVER INSTALLER): We discussed further treatment options as he [...] stretches. Assessment & Plan (09/30/2023 10:00 AM AUTO SLIP COVER INSTALLER): He had minimal response to the steroid [...] exercises. Assessment & Plan (09/22/2023 2:41 PM AUTO SLIP COVER INSTALLER): He has noted acute on chronic plantar [...] 09/22/2023 Assessment & Plan (09/30/2023 10:01 AM AUTO SLIP COVER INSTALLER): This is chronic in nature. Plan would be to resect this surgically once the patient is agreeable to surgery. Assessment & Plan (09/22/2023 2:39 PM AUTO SLIP COVER INSTALLER): Discussed about possible surgical management of continued issues involving an exostectomy of the infracalcaneal exostosis. Contusion of right lesser to e(s) with damage to nail, initial encounter 09/22/2023 Assessment & Plan (09/22/2023 2:40 PM AUTO SLIP COVER INSTALLER): He is noted history of a contusion [...] cancer 03/19/2023 Coronary artery disease invo lving kiana coronary artery of kiana heart without angina pectoris 09/28/2022 Memory loss [...] reportable services. Coronary artery disease invo lving kiana coronary artery of kiana heart without angina pectoris 06/20/2018 Essential hypertension [...] Continue Assessment & Plan (12/29/2023 3:52 PM AUTO SLIP COVER INSTALLER): Using CPAP with good benefit Recs: 1) Continue Chronic coronary artery disease 03/11/2011 Overview (02/04/2018): Description: Multi-vessel Coronary Artery Stenosis Assessment & Plan (06/06/2024 7:04 PM CDT): He has remote LAD stenting and progressive symptoms of chest pain reminiscent to prior angina and exertional dyspnea that is unexplained by non coronary workup. Therefore recommend diagnostic cath and possible PCI if appropriate. - LHC possible PCI (MDM: major surgery with patient specific risk factors of DM2) - continue asa 81, coreg 6.25 bid, atorva 20 Combined forms of age-related cataract 0 Nuclear senile cataract 03/04/2010 Secondary open-angle glaucoma 02/18/2010 Scleritis Overview (04/13/2018): OS Pterygium eye, right Ocular hypertension of right eye Cataract Resolved Problems Problem Noted Date Diagnosed Date Resolved Date Shortness of breath 07/07/2014 12/29/19 Calcific aortic stenosis of bicuspid valve 10/03/2013 04/08/2023 Encounters Date Type Department Care Team Description 04/25/2025 Results Follow-Up [facility] [address] [place] [address] Franny Aragon RMA Basic metabolic panel, Lipid panel, CBC with auto differential, Additional followed-up results: 2 04/24/2025 10:05 AM CDT Lab [facility] [address] [place] [address] Dyslipidemia; Chronic coronary artery disease 04/24/2025 9:15 AM CDT Office Visit [facility] [address] [facility] [address] [facility] [address] [place] [address] Casa Banegas MD Dyslipidemia (Primary Dx); Chronic coronary artery disease 03/30/2025 Telephone [facility] [address] [place] [phone] Linda Caldwell RN 03/30/2025 Orders Only [facility] [address] [place] [phone] Linda Caldwell RN Prostate cancer (HCC) (Primary Dx) 03/29/2025 8:15 AM CDT Office Visit [facility] [address] [place] [phone] Edy Salgado MD Prostate cancer (HCC) (Primary Dx) 03/29/2025 8:00 AM CDT Lab [facility] [address] [place] [phone] Prostate cancer (HCC) 03/16/2025 Orders Only [facility] [address] [place] [address] Linda Caldwell RN Prostate cancer (HCC) (Primary Dx) from Last 3 Months Immunizations Immunization Administration Dates Next Due Influenza, Quadrivalent, Gladys l Culture-based MDCK, Preservative Free, Antibiotic Free, Intramuscular 08/21/2020,08/20/2018 Influenza, Quadrivalent, Spl it, Preservative Free, Intramuscular 08/04/2019 Moderna SARS-CoV-2 Monovalent Vaccination (12+ Y RS) 07/09/2020,06/11/2020 Pneumococcal Conjugate PCV 13 09/01/2019 Tdap 09/01/2019 ZOSTER Recombinant 09/01/2019 Surgical History Surgery Date Site/Laterality Comments CATARACT EXTRACTION INGUINAL HERNIA REPAIR Right Medical History Medical History Date Comments Scleritis OS Pterygium eye, right Ocular hypertension of right eye Cataract GERD (gastroesophageal reflux disease) Hypertension Prostate cancer (HCC) COPD (chronic obstructive pulmonary disease) wit h emphysema (HCC) Coronary artery disease Type 2 diabetes mellitus (HCC) Prostate CA (HCC) Essential hypertension 06/20/2018 Coronary artery disease invo lving kiana coronary artery of kiana heart without angina pectoris 06/20/2018 Obstructive sleep apnea syndrome 04/26/2014 Family History Medical History Relation Name Comments Prostate cancer Brother Heart attack Father Family history of myocardial infarction - (Added by TW Conv)/Family history of heart attack - (Added by TW Conv) Prostate cancer Father Cancer Mother Family history of cancer - (Added by TW Conv) Lung disease Mother Family history of lung disease - (Added by TW Conv) Skin cancer Mother Relation Name Status Comments Brother Father Mother Social History Tobacco Use Types Packs/Day Years Used Date Smoking Tobacco: Former Cigarettes 1.3 40 1 963 - 2003 Smokeless Tobacco: Never Tobacco Cessation:Counseling Given: Not Answered AUDIT-C Answer Date Recorded Q1: How often [...] on file Legal Sex Male 1:23 AM AUTO SLIP COVER INSTALLER Gender Identity Not on file Sexual Orientation Not on file Obstetrics History Last Filed Vital Signs Vital Sign Reading Time Taken Comments Blood Pressure 137/84 04/24/2025 9:04 AM CDT Pulse 66 04/24/2025 9:04 AM CDT Temperature 36.6 C (97.9 F) 04/24/2025 9:04 AM CDT Respiratory Rate 16 03/29/2025 8:08 AM CDT Oxygen Saturation 99% 04/24/2025 9:04 AM CDT Inhaled Oxygen Concentration - - Weight 95.4 kg (210 lb 6.4 oz) 04/24/2025 9:04 A M CDT Height 180.3 cm (5' 11) 04/24/2025 9:04 AM CDT Body Mass Index 29.34 04/24/2025 9:04 AM CDT Plan of Treatment Health Maintenance Due Date Last Done Comments Colon Cancer Screening-Colonoscopy 1950 Hepatitis C Screening 1950 Hepatitis B Screening 01/27/1970 Abdominal Aortic Aneurysm (A AA) Screen 01/27/2017 Well Visit 65+ 01/27/2017 Pneumococcal vaccine 65+ (2 of 2 - PPSV23) 10/27/2019 09/01/2019 Zoster Vaccine (2 of 2) 10/27/2019 09/01/2019 Covid-19 Vaccine (3 - 2023-2 5 season) 2024 07/09/2020, 06/11/2020 Fall Risk Assessment 06/15/2025 06/15/2024 Influenza Vaccine (#1) 2025 , 08/04/2019, 08/20/2018 Depression Screening 11/21/2025 11/21/2024, 05/18/20 24 Prostate Cancer Screening-PSA 03/29/2027, 10/12/2024, 06/15/2024, Additional history exists DTaP/Tdap/Td Vaccine (2 - Td or Tdap) 09/01/2029 09/01/2019 Medical Devices Implanted Type Area [employer] Operator Device Identifier Shelf Expiration Date Model / Serial / Lot [employer] Prosthesis Uro Rectal Spacer Assembly Kit Spaceoar Mauricio 10ml Synthetic [id number] - [id number] Implanted:Qty: 1 on 04/20/2023 by Seun Harrison MD at [facility] N/A: Prostate [employer] 09/01/2024 [id number]-[id number] / / [id number] Description:Posterior prosta te (between) anterior rectum [employer] Marker Fiducial Placement Needle Polymark [id number] - [id number] Implanted:Qty: 1 on 04/20/2023 by Seun Harrison MD at [facility] N/A: Prostate [employer] 09/24/2026 [id number] / / [id number] [employer] Marker Fiducial Placement Needle Polymark [id number] - [id number] Implanted:Qty: 1 on 04/20/2023 by Seun Harrison MD at [facility] N/A: Prostate [employer] 10/25/2026 [id number] / / [id number] [employer] Marker Fiducial Placement Needle Polymark [id number] - [id number] Implanted:Qty: 1 on 04/20/2023 by Seun Harrison MD at [facility] N/A: Prostate [employer] 10/25/2026 [id number] / / [id number] [employer] Prosthesis Uro Prostate Urethra Cartridge Urolift 2 Ul2-C - [id number] Implanted:Qty: 1 on 02/08/2024 by Seun Harrison MD at [facility] N/A: Prostate [employer] 06/23/2025 UL2-C / / [id number] [employer] Prosthesis Uro Prostate Urethra Cartridge Urolift 2 Ul2-C - [id number] Implanted:Qty: 3 on 02/08/2024 by Seun Harrison MD at [facility] N/A: Prostate [employer] 07/08/2025 UL2-C / / [id number] [employer] Prosthesis Uro Prostate Urethra Cartridge Urolift 2 Ul2-C - [id number] Implanted:Qty: 1 on 02/08/2024 by Seun Harrison MD at [facility] N/A: Prostate [employer] 07/27/2025 UL2-C / / [id number] Procedures Procedure Name Priority Date/Time Associated Diagnosis Comments EGFR Routine 04/24/2025 10:08 AM CDT Dyslipidemia Chronic coronary artery disease DIFFERENTIAL AUTO Routine 04/24/2025 10: 08 AM CDT Dyslipidemia Chronic coronary artery disease CBC WITH AUTO DIFFERENTIAL Routine 04/24/2025 10:08 AM CDT Dyslipidemia Chronic coronary artery disease LIPID PANEL Routine 04/24/2025 10:08 AM CDT Dyslipidemia Chronic coronary artery disease BASIC METABOLIC PANEL Routine 04/24/2025 10:08 AM CDT Dyslipidemia Chronic coronary artery disease PSA DIAGNOSTIC Routine 03/29/2025 7:56 AM CDT Prostate cancer (HCC) from Last 3 Months Results * eGFR (04/24/2025 10:08 AM CDT) eGFR >90 >=60 mL/min/1. 73 m2 Comment: Interpretive Data Reference Interval Normal >/= 90 mL/min/1.73m2 Mildly decreased* 60 - 89 mL/min/1.73m2 Mildly to moderately decreased 45 - 59 mL/min/1.73m2 Moderately to severely decreased 30 - 44 mL/min/1.73m2 Severely decreased 15 - 29 mL/min/1.73m2 Kidney Failure < 15 mL/min/1.73m2 *Relative to young adult level Estimated glomerular filtration rate is determined by the 2020 CKD-EPI equation recommended by the National Kidney Foundation (A Unifying Approach to GFR Estimation: Recommendations of the NKF-ASK Task Force on Reassessing the Inclusion of Race in Diagnosing Kidney Disease, EUFEMIASN 2020). The CKD-EPI equation should not be used for patients with unstable renal function and has not been validated in children and those over 70. Current interpretive data was last reviewed 2021. Blood 04/24/2025 10:0 8 AM CDT 04/24/2025 12:04 PM CDT us Casa Banegas MD LAB BLOOD ORDERABLES Final Res ult [facility] [place] [address] * (ABNORMAL) Differential, auto (04/24/2025 10:08 AM CDT) Neutrophil abs 6.78(H) 1.50 - 6.50 K/cumm Imm gran abs 0.08 0.00 - 0.10 K/cumm [facility] Lymphocyte abs 1.76 0.80 - 3.30 K/cumm [facility] Monocyte abs 0.68 0.20 - 0.80 K/cumm [facility] Eosinophil abs 0.11 0.00 - 0.50 K/cumm [facility] Basophil abs 0.04 0.00 - 0.10 K/cumm [facility] Neutrophil pct 71.8 % [facility] Comment: Interpretive Data Percent cell count reference ranges are not reported, since discordance with absolute values may lead to misinterpretation of CBC data. Current Interpretive Data was last revised on 2018. Imm gran pct 0.8 % [facility] Comment: Interpretive Data Percent cell count reference ranges are not reported, since discordance with absolute values may lead to misinterpretation of CBC data. Current Interpretive Data was last revised on 2018. Lymphocyte pct 18.6 % [facility] Comment: Interpretive Data Percent cell count reference ranges are not reported, since discordance with absolute values may lead to misinterpretation of CBC data. Current Interpretive Data was last revised on 2018. Monocyte pct 7.2 % [facility] Comment: Interpretive Data Percent cell count reference ranges are not reported, since discordance with absolute values may lead to misinterpretation of CBC data. Current Interpretive Data was last revised on 2018. Eosinophil pct 1.2 % [facility] Comment: Interpretive Data Percent cell count reference ranges are not reported, since discordance with absolute values may lead to misinterpretation of CBC data. Current Interpretive Data was last revised on 2018. Basophil pct 0.4 % [facility] Comment: Interpretive Data Percent cell count reference ranges are not reported, since discordance with absolute values may lead to misinterpretation of CBC data. Current Interpretive Data was last revised on 2018. Blood 04/24/2025 10:0 8 AM CDT 04/24/2025 11:55 AM CDT us Casa Banegas MD LAB BLOOD ORDERABLES Final Res ult [facility] [place] [address] * CBC with auto differential (04/24/2025 10:08 AM CDT) WBC 9.45 3.80 - 9.90 K/cumm Hgb 15.8 13.0 - 17.5 g/dL [facility] Hct 47.5 38.9 - 50.3 % [facility] Plt 192 150 - 400 K/cumm [facility] MPV 9.1 9.1 - 12.3 fL [facility] RBC 5.11 4.30 - 5.80 M/cumm [facility] MCV 93.0 81.3 - 96.4 fL [facility] MCH 30.9 27.1 - 33.3 pg [facility] MCHC 33.3 32.3 - 35.7 g/dL [facility] RDW CV 13.1 11.1 - 14.9 % [facility] RDW SD 44.8 35.7 - 48.1 fL [facility] NRBC abs 0.00 0.00 - 0.01 K/cumm [facility] Blood 04/24/2025 10:0 8 AM CDT 04/24/2025 11:55 AM CDT us Casa Banegas MD LAB BLOOD ORDERABLES Final Res ult [facility] [place] [address] * Lipid panel (04/24/2025 10:08 AM CDT) Cholesterol 130 30 - 199 mg/dL Comment: Interpretive Data Ages < or = 19 years Acceptable: <170 mg/dL Borderline high: 170-199 mg/dL High: >or= 200 mg/dL Ages > or = 20 years Desirable: <200 mg/dL Borderline high: 200-239 mg/dL High: >or= 240 mg/dL Literature References: 1. Expert Panel on Integrated Guidelines for Cardiovascular Health and Risk Reduction in Children and Adolescents. Pediatrics 2011;128:S213 2. NCEP Expert Panel. Circulation 2004;110:227 Current Interpretive Data was last revised on 2018. Triglycerides 59 <=149 mg/dL [facility] Comment: Interpretive Data Ages < or = 9 years Acceptable: <75 mg/dL Borderline high: 75-99 mg/dL High: >or= 100 mg/dL Ages 10 to 20 years Acceptable: <90 mg/dL Borderline high: 90-129 mg/dL High: >or= 130 mg/dL Ages > or = 20 years Desirable: <150 mg/dL Borderline high: 150-199 mg/dL High: 200-499 mg/dL Very high: >or= 499 mg/dL Literature References: 1. Expert Panel on Integrated Guidelines for Cardiovascular Health and Risk Reduction in Children and Adolescents. Pediatrics 2011;128:S213 2. NCEP Expert Panel. Circulation 2004;110:227 Current Interpretive Data was last revised on 2018. HDL 47 >=40 mg/dL [facility] Comment: Interpretive Data Ages < or = 19 years Acceptable: >45 mg/dL Borderline low: 40-45 mg/dL Low: <40 mg/dL Ages > or = 20 years Desirable: >or= 60 mg/dL Low: <40 mg/dL Literature References: 1. Expert Panel on Integrated Guidelines for Cardiovascular Health and Risk Reduction in Children and Adolescents. Pediatrics 2011;128:S213 2. NCEP Expert Panel. Circulation 2004;110:227 Current Interpretive Data was last revised on 2018. LDL, calculated 70 <=129 mg/dL [facility] Comment: Interpretive Data Ages < or = 19 years Acceptable: <110 mg/dL Borderline high: 110-129 mg/dL High: >or= 130 mg/dL Ages > or = 20 years Optimal: <100 mg/dL Near optimal: 100-129 mg/dL Borderline high: 130-159 mg/dL High: >160 mg/dL Calculated using the Saroj LDL-C estimating equation. This equation was implemented on 2024. Prior to this date LDL-C was estimated using the Friedewald equation. Literature References: 1. Expert Panel on Integrated Guidelines for Cardiovascular Health and Risk Reduction in Children and Adolescents. Pediatrics 2011;128:S213 2. NCEP Expert Panel. Circulation 2004;110:227 3. Saroj Hightower et al. ESTER Cardiol. 2019February 23;5(5):540-548. doi: 10.1001/jamacardio.2020.0013 Current Interpretive Data was last revised on 2024. Non-HDL Cholesterol 83 mg/dL [facility] Comment: Interpretive Data Ages < or = 19 years Acceptable: <120 mg/dL Borderline high: 120-144 mg/dL High: >145 mg/dL Ages > or = 20 years When triglycerides are >200 mg/dL, Non-HDL cholesterol is a secondary target of therapy with treatment goals that are 30 mg/dL greater than the LDL cholesterol target. Literature References: 1. Expert Panel on Integrated Guidelines for Cardiovascular Health and Risk Reduction in Children and Adolescents. Pediatrics 2011;128:S213 2. NCEP Expert Panel. Circulation 2004;110:227 Current Interpretive Data was last revised on 2018. Chol/HDL ratio 3 [facility] Blood 04/24/2025 10:0 8 AM CDT 04/24/2025 11:55 AM CDT us Casa Banegas MD LAB BLOOD ORDERABLES Final Res ult [facility] [place] [address] * Basic metabolic panel (04/24/2025 10:08 AM CDT) Sodium 144 135 - 145 mmol/L Potassium, pl 4.8 3.3 - 4.9 mmol/L [facility] Chloride 105 97 - 110 mmol/L [facility] CO2 30 22 - 32 mmol/L [facility] Anion gap 9 2 - 15 mmol/L [facility] BUN 18 6 - 25 mg/dL [facility] Creatinine 0.84 0.80 - 1.30 mg/dL [facility] Glucose 103 70 - 199 mg/dL [facility] Comment: Interpretive Data Fasting glucose >/= 126 mg/dl is diagnostic for diabetes. Fasting is defined as no caloric intake for at least 8 hours. Fasting glucose between 100 mg/dl to 125 mg/dl is diagnostic of prediabetes. In a patient with classic symptoms of hyperglycemia or hyperglycemic crisis, a random glucose >/= 200 mg/dl is diagnostic for diabetes. In the absence of unequivocal hyperglycemia, results should be confirmed by repeat testing. The classification and Diagnosis of Diabetes Diabetes Care 2021; 46: S19-S40. Current interpretive data was last revised 2022. Calcium 9.5 8.5 - 10.3 mg/dL [facility] Blood 04/24/2025 10:0 8 AM CDT 04/24/2025 11:55 AM CDT us Casa Banegas MD LAB BLOOD ORDERABLES Final Res ult Performing Organization Address City/[facility]/ZIP Co de Phone Number [facility] Department [place] [address] * PSA diagnostic (03/29/2025 7:56 AM CDT) PSA-Total 0.39 <=6.20 ng/mL Comment: Interpretive Data AGE SEX REFERENCE INTERVAL 0 minutes-150 years Female None 0 minutes-49 years Male None 50-59 years Male 0-3.90 60-69 years Male 0-5.40 70-79 years Male 0-6.20 80-150 years Male 0-6.20 The [employer]ier PSA Total assay procedure was used. Results from different manufacturers or methods may not be comparable. Serial testing should be performed using the same method. Current interpretive data last revised 22. Blood 03/29/2025 7:56 AM CDT 03/29/2025 8:10 AM CDT us Edy Salgado MD LAB BLOOD ORDERABLES Final Result [facility] [address] [place] [address] from Last 3 Months Insurance [employer] MEDICARE AETUplike MEDICARE AETNA MEDICARE Advance Directives For more information, please contact: [phone] * Full Code (Latest Code Status on File) Date Activated Date Inactivated Comments 04/30/2023 9:19 AM 04/30/2023 4:53 PM Care Teams Installer Relationship Specialty Start Date End Date Rosaline Banegas MD PCP - General Internal Medicine 02/24/19 Edy Salgado MD [address] [facility] [place] [address] Consulting Physician Radiation Oncology 12/04/22 Seun Harrison MD [address] [place] [address] Consulting Physician Surgery 02/08/24
--- OUTSIDE RECORDS SUMMARY | 2025-05-12 11:23 | XMS_ITS | Continuity of Care Document ---
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 [place] DELGADILLO Unavailable Unavail able Allergies, Adverse Reactions, Alerts Substance Reaction Status Criticality No Known Allergies Active No Inform ation Procedures Procedure Date Kenalog 10mg/mL Asp/Injection, Major Joint W/ Ultrasound Kenalog 10mg/mL Asp/Injection, Major Joint W/ Ultrasound Kenalog 40mg/mL Asp/Injection, Major Joint W/ Ultrasound Kenalog 40mg/mL X-ray exam shoulder complete, minimum 2 views Asp/Injection, Major Joint W/ Ultrasound Kenalog 40mg/mL Office/outpatient visit,est, mod 2023 Kenalog 40mg/mL Asp/Injection, Major Joint W/ Ultrasound Kenalog 10mg/mL Asp/Injection, Major Joint W/ Ultrasound Kenalog 10mg/mL Asp/Injection, Major Joint W/ Ultrasound X-ray exam shoulder complete, minimum 2 views Kenalog 10mg/mL Asp/Injection, Major Joint W/ Ultrasound Kenalog 40mg/mL Asp/Injection, Major Joint W/ Ultrasound Office/outpatient visit,est, mod 2022 Kenalog 40mg/mL Asp/Injection, Major Joint W/ Ultrasound X-ray exam shoulder complete, minimum 2 views Kenalog 40mg/mL Asp/Injection, Major Joint W/ Ultrasound Office/outpatient visit,est, mod 2022 Advance Directives Directive Yes / No Effective Date File Name No Information Encounters Encounter Description Practice Location Reason(s) For Visit Diagnoses Date Provider Providers Copied on Encounter [facility], [address], [id number], [place] tel:[phone] [facility] right shoulder pain (chief complaint) left shoulder pain (chief complaint) Bicipital tendinitis, left shoulderPrima ry osteoarthriti s, right shoulderCompl ete rotatr-cuff tear/ruptr of left shoulder, not traumaBursiti s of right shoulder 5 [facility] [place] . [address] [facility], [address], [id number] , [place]. tel:[phone] Referring Provider: Rosaline Hawk, [address] [place] [address], [id number]. tel:[phone] [facility], [address] [address], [place], [place], [id number], [place] tel:[phone] [facility] left shoulder pain (chief complaint) right shoulder pain (chief complaint) Primary osteoarthriti s, left shoulderCompl ete rotatr-cuff tear/ruptr of left shoulder, not traumaBicipit al tendinitis, left shoulderPrima ry osteoarthriti s, right shoulderBursi tis of right shoulder [address] [place] [address] CLOTH CUTTING MACHINE OPERATOR [place] . [address] [facility], [facility] [address], [place], [id number] , [place]. tel:[phone] Referring Provider: Rosaline Hawk, [address] [place] [address], [id number]. tel:[phone] Office/outpa tient visit,est, mod [facility], [address], [id number], [place] tel:[phone] [facility] left shoulder pain (chief complaint) right shoulder pain (chief complaint) Primary osteoarthriti s, left shoulderBicip ital tendinitis, left shoulderArthr opathy, unspecifiedBu rsitis of right shoulder Sep-3 0 4 House CLOTH CUTTING MACHINE OPERATOR [place] . [address], [id number] , [place]. tel:[phone] Referring Provider: Rosaline Hawk, [address] [place] [address], [id number]. tel:[phone] [facility], [address], [id number], [place] tel:[phone] [facility] left shoulder pain (chief complaint) Complete rotatr-cuff tear/ruptr of left shoulder, not traumaBicipit al tendinitis, left shoulderPrima ry osteoarthriti s, left shoulderArthr opathy, unspecified Walter- [address] CLOTH CUTTING MACHINE OPERATOR [place] . [address] [facility], [address] [address], [place], [place], [id number] , [place]. tel:[phone] Referring Provider: Rosaline Hawk, [address] [place] [address], [id number]. tel:[phone] [facility], [address], [id number], [place] tel:[phone] [facility] left shoulder pain (chief complaint) right shoulder pain (chief complaint) Primary osteoarthriti s, left shoulderCompl ete rotatr-cuff tear/ruptr of left shoulder, not traumaBicipit al tendinitis, left shoulderArthr opathy, unspecifiedBu rsitis of right shoulder Mar-2 4 House CLOTH CUTTING MACHINE OPERATOR [place] . [address] [facility], [facility] [address], [place], [place], [id number] , [place]. tel:[phone] Referring Provider: Rosaline Hawk, [address] [place] [address], [id number]. tel:[phone] Office/outpa tient visit,est, [facility], [address] [address], [place], [place], [id number], [place] tel:[phone] [facility] right shoulder pain (chief complaint) left shoulder pain (chief complaint) Pain in right shoulderBursi tis of right shoulderBicip ital tendinitis, left shoulderPrima ry osteoarthriti s, left shoulderArthr opathy, unspecifiedCo mplete rotatr-cuff tear/ruptr of left shoulder, not trauma 3 House CLOTH CUTTING MACHINE OPERATOR [place] . [address] [facility], [address], [id number] , [place]. tel:[phone] Referring Provider: Rosaline Hawk, [address] [place] [address], [id number]. tel:[phone] [facility], [address] [address], [place], [place], [id number], [place] tel:[phone] [facility] left shoulder pain (chief complaint) Pain in left shoulderPrima ry osteoarthriti s, left shoulderBicip ital tendinitis, left shoulder 3 House CLOTH CUTTING MACHINE OPERATOR [place] . [address] [facility], [facility] [address], [place], [place], [id number] , [place]. tel:[phone] Referring Provider: [place] Braswell, [address] [facility] [address] [facility], [place], [address]. tel:[phone] Office/outpa tient visit,est, [facility], [address] [address], [place], [place], [id number], [place] tel:[phone] [facility] Pain in left shoulder 3 Raúl Maldonado. [address] [facility], [place], [place], [id number] , [place]. tel: [phone] Referring Provider: Joel Olsen MD T, [address], [place], [address]. tel:[phone] Family History Family Member Type Diagnosis Age At Onset No Information Immunizations Vaccine Date Status Comments influenza, injectable, quadr ivalent, (3 years or older) administered Source: Other Provid er Payers Payer name Insurance type Covered alliance party ID Authorrosibela zaid(s) [employer] CI [id number] Social History Type Description Quantity Date Captured Comments Alcohol Use Details Unknown Caffeine Use Details Unknown Tobacco Use Status No Information Smoking Status Former smoker Non-Smoking Tobacco Use Details : No Details Available : No Details Available Sex Male Gender Identity Male Vital Signs Date / Time: Height Weight BMI Pulse Rate Blood Pressure Temperature Respiratory Rate Body Surface Area Head Circumference Head Circ. Percentile Wt./Simone. Percentile BMI percentile Pulse Ox Inhaled Ox 8:58 AM 71.00 in 104.326 kg (230.00 lbs) 32.0 8 kg/m benoiter (2) Chief Complaint And Reason For Visit From encounter dated '03/27/2025 09:00'. right shoulder pain (chief complaint). Description: He presents with pain on the right side. The patient has known cuff tendinitis/bursitis and would like to proceed with a subacromial cortisone injection today. left shoulder pain (chief complaint). Description: He presents with pain on the left side. The patient has known glenohumeral osteoarthritis and would like to repeat a cortisone injection today. Reason For Referral Reason For Referral No Information Plan Of Treatment Date Type Action Status Referral Ordered: X-ray exam shoulder complete, minimum 2 views RT shoulder ordered Referral Ordered: X-ray exam shoulder complete, minimum 2 views LT shoulder ordered History Of Present Illness Encounter Date Complaint History Of Prese nt Illness right shoulder pain He presents with pain on the right side. The patient has known cuff tendinitis/bursitis and would like to proceed with a subacromial cortisone injection today. left shoulder pain He presents w ith pain on the left side. The patient has known glenohumeral osteoarthritis and would like to repeat a cortisone injection today. right shoulder pain He presents with pain on the right side. The patient has known cuff tendinitis/bursitis and would like to proceed with a subacromial cortisone injection today. left shoulder pain He presents w ith pain on the left side. The patient has known glenohumeral osteoarthritis and would like to repeat a cortisone injection today. left shoulder pain Seun Lemus is a 74 year old male. The patient has known glenohumeral osteoarthritis and returns noting worsening of symptoms. Prior injections have provided relief however they would like to discuss other treatment options. He presents with pain on the left side. He states that the symptoms have been chronic non-traumatic. The symptoms occur constantly. The problem is worse. Currently the patient states that the symptoms are incapacitating. The pain is described as aching and sharp. The symptoms occur with activity. The symptoms are aggravated by daily activities and moving the arm suddenly. In addition to left shoulder pain the patient is also experiencing decreased mobility and nocturnal awakening. Pertinent negatives include fever, radicular symptoms, numbness and weakness. The patient has had a previous x-ray. Previous treatment includes rest, ice, NSAIDS, PT and injections. right shoulder pain Seun davison is a 74 year old male. The patient has a known cuff tendinitis and bursitis. He presents with pain on the right side. The patient returns after prior subacromial injection noting good relief, but pain has returned. The pain is described as aching and is moderate to severe. The pain is intermittent and made worse by activities away from the body. The patient does have pain with overhead activities, does have pain with reaching behind the back, and does have pain at night. The patient has not had episodes of instability. Current treatment has consisted of NSAIDS/Tylenol, icing, prior PT guided rehab. 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 They report significant relief from their last injection but the pain has returned. The patient would like to repeat another injection and continue PT/home exercises. He presents with pain on the left side. 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 They report significant relief from their last injection but the pain has returned. The patient would like to repeat another injection and continue PT/home exercises. He presents with pain on the left side. right shoulder pain He presents with pain on the right side. The patient has known cuff tendinitis/bursitis and would like to proceed with a subacromial cortisone injection today. right shoulder pain Mr Lemus is a 73 year old male who complains of right shoulder pain. He presents with pain on the right side. He states that the symptoms have been acute non-traumatic and began 3 months ago. The symptoms occur occasionally. The problem is unchanged. Currently the patient states that the symptoms are moderate. The pain is described as stabbing, aching and sharp. The symptoms occur with activity. The patient is experiencing pain in the following location: anterior shoulder on the right side. He rates his current pain as 5/10. The pain does not radiate. The symptoms are aggravated by lifting away from the body, reaching behind and lifting. Seun states that the symptoms are relieved by rest. In addition to right shoulder pain the patient is also experiencing nocturnal awakening, crunching, decreased mobility and weakness. Pertinent negatives include fever, joint instability and tingling in the arms. The patient has had a previous x-ray. Prior NSAIDs include unspecified NSAIDS. He has had no previous treatment. Patient has not had any pertinent therapy for this condition. Patient has had no prior surgeries. He experienced no previous injury. 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 They report significant relief from their last injection but the pain has returned following a recent injury. He states he manisha his left shoulder doing yard work 1 week ago and he has had significant pain since. He is planning on having a rTSA in the near future but would like to delay this surgery until his trip in November. The patient would like to repeat another injection and continue PT/home exercises. He presents with pain on the left side. left shoulder pain He presents w ith pain on the left side. The patient has known glenohumeral osteoarthritis and would like to repeat a cortisone injection today. Functional Status Date Functional Assessmen t No Information Instructions Date Instruction Additional Infor dinora The patient has elec iman to proceed with a non-operative treatment plan today. After discussing the risks, benefits, and alternatives they have elected to proceed with a subacromial injection. We will make arrangements for this. he declined a prescription for physical therapy today. After discussing the pros, cons, and side effect potential they declined a prescription for a topical/oral NSAID. They were given instructions on icing and we discussed activity modifications as appropriate.The patient will follow up in 6 wks if not improved after the treatments today or sooner if needed at which point an MRI may be indicated and we may consider arthroscopic intervention depending on the situation. If symptoms resolve, they will follow up on an as needed basis. Questions answered, verbalized understanding. Related to Bursitis of right shoulder Injection performed today as documented. Continue non-operative treatments as outlined previously. Follow up prn if symptoms return or worsen. Questions answered, verbalized understanding. Related to Bicipital tendinitis, left shoulder The patient has elec iman to proceed with a non-operative treatment plan today. After discussing the risks, benefits, and alternatives they have elected to proceed with a subacromial injection. We will make arrangements for this. He will continue his home exercises given at a last visit. After discussing the pros, cons, and side effect potential they declined a prescription for a topical/oral NSAID. They were given instructions on icing and we discussed activity modifications as appropriate.The patient will follow up in 6 wks if not improved after the treatments today or sooner if needed at which point an MRI may be indicated and we may consider arthroscopic intervention depending on the situation. If symptoms resolve, they will follow up on an as needed basis. Questions answered, verbalized understanding. Related to Bursitis of right shoulder Injection performed today as documented. Continue non-operative treatments as outlined previously. Follow up prn if symptoms return or worsen. Questions answered, verbalized understanding. Related to Primary osteoarthritis, left shoulder The patient has elec iman to proceed with a non-operative treatment plan today. After discussing the risks, benefits, and alternatives they have elected to proceed with a subacromial injection. We will make arrangements for this. He will continue his home exercises. After discussing the pros, cons, and side effect potential they declined a prescription for a topical/oral NSAID. They were given instructions on icing and we discussed activity modifications as appropriate.The patient will follow up in 6 wks if not improved after the treatments today or sooner if needed at which point an MRI may be indicated and we may consider arthroscopic intervention depending on the situation. If symptoms resolve, they will follow up on an as needed basis. Questions answered, verbalized understanding. Related to Bursitis of right shoulder Injection performed today as documented. Continue non-operative treatments as outlined previously. Follow up prn if symptoms return or worsen. Questions answered, verbalized understanding. Related to Primary osteoarthritis, left shoulder Injection performed today as documented. Continue non-operative treatments as outlined previously. Follow up prn if symptoms return or worsen. Questions answered, verbalized understanding. Related to Arthropathy, unspecified The patient has elec iman to proceed with a non-operative treatment plan today. After discussing the risks, benefits, and alternatives they have elected to proceed with a subacromial injection. We will make arrangements for this. He declined a prescription for PT but will continue his home exercises. After discussing the pros, cons, and side effect potential they declined a prescription for a topical/oral NSAID. They were given instructions on icing and we discussed activity modifications as appropriate.The patient will follow up in 6 wks if not improved after the treatments today or sooner if needed at which point an MRI may be indicated and we may consider arthroscopic intervention depending on the situation. If symptoms resolve, they will follow up on an as needed basis. Questions answered, verbalized understanding. Related to Bursitis of right shoulder Injection performed today as documented. Continue non-operative treatments as outlined previously. Follow up prn if symptoms return or worsen. Questions answered, verbalized understanding. Related to Arthropathy, unspecified Injection performed today as documented. Continue non-operative treatments as outlined previously. Follow up prn if symptoms return or worsen. Questions answered, verbalized understanding. Related to Arthropathy, unspecified The patient has elec iman to proceed with a non-operative treatment plan today. After discussing the risks, benefits, and alternatives they have elected to proceed with a subacromial injection. We will make arrangements for this. He was given instructions for home exercises. After discussing the pros, cons, and side effect potential they declined a prescription for a topical/oral NSAID. They were given instructions on icing and we discussed activity modifications as appropriate.The patient will follow up in 6 wks if not improved after the treatments today or sooner if needed at which point an MRI may be indicated and we may consider arthroscopic intervention depending on the situation. If symptoms resolve, they will follow up on an as needed basis. Questions answered, verbalized understanding. Related to Bursitis of right shoulder Injection performed today as documented. Continue non-operative treatments as outlined previously. Follow up prn if symptoms return or worsen. Questions answered, verbalized understanding. Related to Primary osteoarthritis, left shoulder Assessments Type Assessment Date assessment Bicipital tendinitis, left shoul tristen assessment Primary osteoarthritis, right sh oulder assessment Complete rotatr-cuff tear/ruptr of left shoulder, not trauma assessment Bursitis of right shoulder Patient Care Teams Name Effective Dates (start - stop) Status Members No Information
--- OUTSIDE RECORDS SUMMARY | 2025-05-12 11:23 | XMS_ITS | Referral Summary ---
Author Organization [facility] [employer] [facility] Address [address] [place] [address] Phone Care Team Providers Care Facsimile Machine Operator Name Role Phone Rosaline Banegas MD Primary Care Provider Edy Salgado MD Unavailable [phone] Seun Harrison MD Unavailable Encounters Date Type Department Care Team Description 04/25/2025 Results Follow-Up [facility] Cardiology [address] [facility] Medical [address] [place] [phone] Franny Aragon RMA Basic metabolic panel, Lipid panel, CBC with auto differential, Additional followed-up results: 2 04/24/2025 10:05 AM CDT Lab [facility] [address] [place] [address] [address] [place] [address] Dyslipidemia; Chronic coronary artery disease 04/24/2025 9:15 AM CDT Office Visit [facility] [address] [facility] [address] [place] [address] Casa Banegas MD Dyslipidemia (Primary Dx); Chronic coronary artery disease 03/30/2025 Telephone [facility] [address] [place] [address] Linda Caldwell RN 03/30/2025 Orders Only [facility] [address] [place] [phone] Linda Caldwell RN Prostate cancer (HCC) (Primary Dx) 03/29/2025 8:00 AM CDT Lab [facility] Lab [address] [place] [phone] Prostate cancer (HCC) 03/29/2025 8:15 AM CDT Office Visit [facility] [address] [place] [phone] Edy Salgado MD Prostate cancer (HCC) (Primary Dx) 03/16/2025 Orders Only [facility] [address] [place] [phone] Linda Caldwell RN Prostate cancer (HCC) (Primary Dx) from Last 3 Months Allergies No known active allergies Medications aspirin 81 mg tablet Take 1 tablet (81 mg total) by mouth daily Active omeprazole (PriLOSEC) 40 mg capsule Take 1 capsule (40 mg total) by mouth daily 90 capsule 1 01/13/20 20 Active fluticasone-um eclidin-vilant er (Trelegy Ellipta) 200-62.5-25 mcg inhalerIndicat ions:Chronic obstructive pulmonary disease, unspecified COPD type ([facility]) Inhale 1 puff daily 180 each 3 [...] maintenance/vaccinations Assessment & Plan (12/29/2023 3:52 PM SHEET METAL SHOP SUPERVISOR): Possible etiology for his exertional dyspnea - [...] 12/29/2023 Assessment & Plan (12/29/2023 3:55 PM SHEET METAL SHOP SUPERVISOR): Diet and lifestyle modifications discussed to achieve weight loss Ozempic was helpful in the past. Was discontinued due to side effects -- asked him to call Dr. Banegas (PCP) to discuss reinitiation of medications Benign prostatic hyperplasia with lower urinary tract symptoms 11/20/2023 Contusion of right lesser to e(s) with damage to nail, subsequent encounter 09/30/2023 Assessment & Plan (09/30/2023 9:12 AM SHEET METAL SHOP SUPERVISOR): Will continue to monitor the 2nd digit right foot. If continued issues and no distal migration of suspected subungual hematoma, I'd recommend nail avulsion to examine nail bed. Plantar fascial fibromatosis 09/22/2023 Assessment & Plan (10/27/2023 10:33 AM SHEET METAL SHOP SUPERVISOR): We discussed further treatment options as he [...] stretches. Assessment & Plan (09/30/2023 10:00 AM SHEET METAL SHOP SUPERVISOR): He had minimal response to the steroid [...] exercises. Assessment & Plan (09/22/2023 2:41 PM SHEET METAL SHOP SUPERVISOR): He has noted acute on chronic plantar [...] 09/22/2023 Assessment & Plan (09/30/2023 10:01 AM SHEET METAL SHOP SUPERVISOR): This is chronic in nature. Plan would be to resect this surgically once the patient is agreeable to surgery. Assessment & Plan (09/22/2023 2:39 PM SHEET METAL SHOP SUPERVISOR): Discussed about possible surgical management of continued issues involving an exostectomy of the infracalcaneal exostosis. Contusion of right lesser to e(s) with damage to nail, initial encounter 09/22/2023 Assessment & Plan (09/22/2023 2:40 PM SHEET METAL SHOP SUPERVISOR): He is noted history of a contusion [...] cancer 03/19/2023 Coronary artery disease invo lving [place] coronary artery of [place] heart without angina pectoris 09/28/2022 Memory loss [...] reportable services. Coronary artery disease invo lving [place] coronary artery of [place] heart without angina pectoris 06/20/2018 Essential hypertension [...] Continue Assessment & Plan (12/29/2023 3:52 PM SHEET METAL SHOP SUPERVISOR): Using CPAP with good benefit Recs: 1) [...] aortic stenosis of bicuspid valve 10/03/2013 04/08/2023 Immunizations Immunization Administration Dates Next Due Influenza, Quadrivalent, Gladys l Culture-based MDCK, Preservative Free, Antibiotic Free, Intramuscular 08/21/2020,08/20/2018 Influenza, Quadrivalent, Spl it, Preservative Free, Intramuscular 08/04/2019 Moderna SARS-CoV-2 Monovalent Vaccination (12+ Y RS) 07/09/2020,06/11/2020 Pneumococcal Conjugate PCV 13 09/01/2019 Tdap 09/01/2019 ZOSTER Recombinant 09/01/2019 Social History Tobacco Use Types Packs/Day Years Used Date Smoking Tobacco: Former Cigarettes 1.3 40 1 963 - 2002 Smokeless Tobacco: Never Tobacco Cessation:Counseling Given: Not [...] on file Legal Sex Male 1:23 AM SHEET METAL SHOP SUPERVISOR Gender Identity Not on file Sexual Orientation [...] 04/24/2025 9:04 AM CDT Plan of Treatment Not on file Medical Devices Implanted Type Area Firefighter Device Identifier Shelf Expiration Date Model / Serial / Lot [employer] Rip Prosthesis Uro Rectal Spacer Assembly Kit Spaceoar Mauricio 10ml Synthetic [id number]-[id number] - [id number] Implanted:Qty: 1 on 04/20/2023 by Seun Harrison MD at [facility] N/A: Prostate [employer] Rip 09/01/2024 [id number]-[id number] / / [id number] Description:Posterior prosta te (between) anterior rectum [employer] Marker Fiducial Placement Needle Polymark [id number] - [id number] Implanted:Qty: 1 on 04/20/2023 by Seun Harrison MD at [facility] N/A: Prostate [employer] 09/24/2026 [id number] / / [id number] [employer] Marker Fiducial Placement Needle Polymark [id number] - [id number] Implanted:Qty: 1 on 04/20/2023 by Seun Harrison MD at [facility] N/A: Prostate [employer] 10/25/2026 [id number] / / [id number] [employer] Marker Fiducial Placement Needle Polymark [id number] - [id number] Implanted:Qty: 1 on 04/20/2023 by Seun Harrison MD at [facility] N/A: Prostate [employer] 10/25/2026 [id number] / / [id number] [employer] Prosthesis Uro Prostate Urethra Cartridge Urolift 2 Ul2-C - [id number] Implanted:Qty: 1 on 02/08/2024 by Seun Harrison MD at [facility] N/A: Prostate [employer] 06/23/2025 UL2-C / / [id number] [employer] Prosthesis Uro Prostate Urethra Cartridge Urolift 2 Ul2-C - [id number] Implanted:Qty: 3 on 02/08/2024 by Seun Harrison MD at [facility] N/A: Prostate [employer] 07/08/2025 UL2-C / / [id number] [employer] Prosthesis Uro Prostate Urethra Cartridge Urolift 2 Ul2-C - [id number] Implanted:Qty: 1 on 02/08/2024 by Seun Harrison MD at [facility] N/A: Prostate [employer] 07/27/2025 UL2-C / / [id number] Procedures Procedure Name Priority Date/Time Associated Diagnosis [...] Inclusion of Race in Diagnosing Kidney Disease, JASN 2020). The CKD-EPI equation should not be used for patients with unstable renal function and has not been validated in children and those over 70. Current interpretive data was last reviewed 2021. Blood 04/24/2025 10:0 8 AM CDT 04/24/2025 12:04 PM CDT us Casa Banegas MD LAB BLOOD ORDERABLES Final Res ult [facility] Department [place] [address] * (ABNORMAL) Differential, auto (04/24/2025 10:08 AM CDT) Neutrophil abs 6.78(H) 1.50 - 6.50 K/cumm Imm gran abs 0.08 0.00 - 0.10 K/cumm [facility] Lymphocyte abs 1.76 0.80 - 3.30 K/cumm [facility] Monocyte abs 0.68 0.20 - 0.80 K/cumm [facility] Eosinophil abs 0.11 0.00 - 0.50 K/cumm [facility] Basophil abs 0.04 0.00 - 0.10 K/cumm [facility] Neutrophil pct 71.8 % [facility] Comment: Interpretive Data Percent cell count reference ranges are not reported, since discordance with absolute values may lead to misinterpretation of CBC data. Current Interpretive Data was last revised on 2018. Imm gran pct 0.8 % [facility] Comment: Interpretive Data Percent cell count reference ranges are not reported, since discordance with absolute values may lead to misinterpretation of CBC data. Current Interpretive Data was last revised on 2018. Lymphocyte pct 18.6 % [facility] Comment: Interpretive Data Percent cell count reference ranges are not reported, since discordance with absolute values may lead to misinterpretation of CBC data. Current Interpretive Data was last revised on 2018. Monocyte pct 7.2 % [facility] Comment: Interpretive Data Percent cell count reference ranges are not reported, since discordance with absolute values may lead to misinterpretation of CBC data. Current Interpretive Data was last revised on 2018. Eosinophil pct 1.2 % [facility] Comment: Interpretive Data Percent cell count reference ranges are not reported, since discordance with absolute values may lead to misinterpretation of CBC data. Current Interpretive Data was last revised on 2018. Basophil pct 0.4 % [facility] Comment: Interpretive Data Percent cell count reference ranges are not reported, since discordance with absolute values may lead to misinterpretation of CBC data. Current Interpretive Data was last revised on 2018. Blood 04/24/2025 10:0 8 AM CDT 04/24/2025 11:55 AM CDT us Casa Banegas MD LAB BLOOD ORDERABLES Final Res ult [facility] Department [place] [address] * CBC with auto differential (04/24/2025 10:08 AM CDT) WBC 9.45 3.80 - 9.90 K/cumm Hgb 15.8 13.0 - 17.5 g/dL [facility] Hct 47.5 38.9 - 50.3 % [facility] Plt 192 150 - 400 K/cumm [facility] MPV 9.1 9.1 - 12.3 fL [facility] RBC 5.11 4.30 - 5.80 M/cumm [facility] MCV 93.0 81.3 - 96.4 fL [facility] MCH 30.9 27.1 - 33.3 pg [facility] MCHC 33.3 32.3 - 35.7 g/dL [facility] RDW CV 13.1 11.1 - 14.9 % [facility] RDW SD 44.8 35.7 - 48.1 fL [facility] NRBC abs 0.00 0.00 - 0.01 K/cumm [facility] Blood 04/24/2025 10:0 8 AM CDT 04/24/2025 11:55 AM CDT us Casa Banegas MD LAB BLOOD ORDERABLES Final Res ult [facility] Department [place] [address] * Lipid panel (04/24/2025 10:08 AM CDT) [...] revised on 2018. Triglycerides 59 <=149 mg/dL [facility] Comment: Interpretive Data Ages < or = [...] revised on 2018. HDL 47 >=40 mg/dL [facility] Comment: Interpretive Data Ages < or = [...] on 2018. LDL, calculated 70 <=129 mg/dL [facility] Comment: Interpretive Data Ages < or = [...] 2. NCEP Expert Panel. Circulation 2004;110:227 3. Saorj Hightower et al. ESTER Cardiol. 2019February 23;5(5):540-548. doi: 10.1001/jamacardio.2020.0013 Current Interpretive Data was last revised on 2024. Non-HDL Cholesterol 83 mg/dL [facility] Comment: Interpretive Data Ages < or = [...] last revised on 2018. Chol/HDL ratio 3 [facility] Blood 04/24/2025 10:0 8 AM CDT 04/24/2025 11:55 AM CDT us Casa Banegas MD LAB BLOOD ORDERABLES Final Res ult [facility] Department [place] [address] * Basic metabolic panel (04/24/2025 10:08 AM CDT) Pathologist [facility] Sodium 144 135 - 145 mmol/L Potassium, pl 4.8 3.3 - 4.9 mmol/L [facility] Chloride 105 97 - 110 mmol/L [facility] CO2 30 22 - 32 mmol/L [facility] Anion gap 9 2 - 15 mmol/L [facility] BUN 18 6 - 25 mg/dL [facility] Creatinine 0.84 0.80 - 1.30 mg/dL [facility] Glucose 103 70 - 199 mg/dL [facility] Comment: Interpretive Data Fasting glucose >/= 126 [...] 2022. Calcium 9.5 8.5 - 10.3 mg/dL [facility] Blood 04/24/2025 10:0 8 AM CDT 04/24/2025 11:55 AM CDT us Casa Banegas MD LAB BLOOD ORDERABLES Final Res ult Performing Organization Address [facility] Co de Phone Number [facility] Department [place] [address] * PSA diagnostic (03/29/2025 7:56 AM CDT) [...] Salgado MD LAB BLOOD ORDERABLES Final Result [facility] [address] Department [place] [address] from Last 3 Months Insurance T MEDICARE AETNA MEDICARE AETNA MEDICARE Advance Directives For more information, please contact: [phone] * Full Code (Latest Code Status on File) Date Activated Date Inactivated Comments 04/30/2023 9:19 AM 04/30/2023 4:53 PM Care Teams Facsimile Machine Operator Relationship Specialty Start Date End Date Rosaline Banegas MD PCP - General Internal Medicine 02/24/19 Edy Salgado MD [address] [facility] [place] [address] Consulting Physician Radiation Oncology 12/04/22 Seun Harrison MD [address] [facility] [place] [address] Consulting Physician Surgery 02/08/24
[2025-05-12 12:08] LABS: Hematocrit 46.3 % (37.0-46.0); Hemoglobin 15.2 g/dL (12.4-15.3); Mean Corpuscular HGB Conc 32.8 g/dL (32-36); Mean Corpuscular Hemoglobin 30.5 pg (27.0-31.0); Mean Corpuscular Volume 93.0 fL (78.0-102.0); Platelet Count Result 248 K/mm3 (150-420); Red Blood Count 4.98 M/mm3 (4.70-6.10); White Blood Count 10.0 K/mm3 (4.8-10.8)
[2025-05-12 12:10] LABS: Add Urine Microscopic? NO; Appearance Urine Clear (Clear); Glucose Urine UA Negative (Negative); Leukocyte Esterase Ur Negative (Negative); Nitrate Urine Negative (Negative); Specific Grav Ur >= 1.030 (1.010-1.020)
[2025-05-12 12:26] LABS: Hemoglobin A1C 5.5 % (<5.7)
[2025-05-12 12:36] LABS: Alanine Aminotransferase 19 U/L (6-50); Albumin Level 3.8 g/dL (3.5-5.1); Alkaline Phosphatase 77 U/L (38-126); Anion Gap 3 mmol/L (4-12); Aspartate Amino Transferase 23 U/L (17-59); Bilirubin,Total 1.2 mg/dL (0.2-1.3); Blood Urea Nitrogen 20 mg/dL (9-20); Calcium 9.1 mg/dL (8.4-10.2); Carbon Dioxide 27 mmol/L (22-30); Chloride 107 mmol/L (98-107); Cholesterol 139 mg/dL (0-200); Creatine Kinase 86 U/L (55-170); Estimated Glomerular Filt Rate > 60; Glucose 94 mg/dL (65-110); HDL Direct 54 mg/dL; Osmolality Calculated 286 mOsm/kg (285-295); Potassium 4.9 mmol/L (3.4-5.0); Sodium 137 mmol/L (137-145); Total Protein 6.4 g/dL (6.3-8.2); Triglycerides 60 mg/dL (<150)
[2025-05-12 12:53] LABS: Free T4 Free Thyroxine 1.32 ng/dL (0.78-2.19)
[2025-05-12 13:05] LABS: INR 1.0; Prothrombin Time 10.9 Seconds (9.50-12.1)
[2025-05-12 13:07] LABS: Thyroid Stimulating Hormone 0.300 uIU/mL (0.465-4.680)
== END 2025-05-12 11:18 | disposition home or self-care (01) ==
LOC: CHSLAB 11:20
PROVIDERS: PCP Internal Medicine; Visit Provider Internal Medicine
DX: G31.84 Mild cognitive impairment of uncertain or unknown etiology (principal); E11.69 Type 2 diabetes mellitus with other specified complication; C61 Malignant neoplasm of prostate; I10 Essential (primary) hypertension; B19.20 Unspecified viral hepatitis C without hepatic coma; J44.9 Chronic obstructive pulmonary disease, unspecified; I25.10 Atherosclerotic heart disease of native coronary artery without angina pectoris
CPT/HCPCS: 36415; 80053; 80061; 81003; 82550; 83036; 84439; 84443; 85027; 85610

== ENCOUNTER 2025-05-18 13:22 | Outpatient (CLI) | payer MEDICARE, SELFPAY ==
--- NOTE | ~2025-05-18 | US_ITS ---
US thyroid INDICATION: Hyperthyroidism TECHNIQUE: Real-time sonographic images of the thyroid gland were obtained. COMPARISON: No prior studies for comparison. FINDINGS: The right thyroid lobe measures 4.5 x 1.6 x 2.4 cm. The left thyroid lobe measures 4.1 x 1 .6 x 2 cm. Thyroid echotexture is heterogeneous. Normal vascularity. In the right lobe there multiple small hypoechoic masses measuring 5 mm or less which do not meet sonographic criteria for biopsy. In the left lobe there are multiple masses, largest measuring 1.4 x 1.2 x 1.0 cm. This mass is mixed cy stic and solid, hypoechoic, wider than tall, ill-defined margins without echogenic foci, TR 3. Normal vascular flow is present. IMPRESSION: 1. Multiple bilateral thyroid masses, consistent with multinodular goiter. None of the masses meet s onographic criteria for biopsy. Recommend follow-up ultrasound in 12 months. Reviewed, dictated and finalized at location [] IMPRESSION: 1. Multiple bilateral thyroid masses, consistent with multinodular goiter. Non e of the masses meet sonographic criteria for biopsy. Recommend follow-up ultra sound in 12 months.
--- OUTSIDE RECORDS SUMMARY | 2025-05-18 13:32 | XMS_ITS | Encounter Summary ---
Author Organization [facility] Address [address] [place] [address] Phone Care Team Providers Care Belt Repairer Name Role Phone Rosaline Banegas MD Primary Care Provider [phone] Edy Salgado MD Unavailable Seun Harrison MD Unavailable Encounter Details Date Type Department Care Team (Late st Contact Info) Description 04/25/2025 Results Follow-Up [facility] Medical Office Building [address] [place] [address] Franny Aragon RMA Basic metabolic [...] on file Legal Sex Male 1:23 AM ARTIFICIAL STONE SETTER Gender Identity Not on file Sexual Orientation Not on file documented as of this encounter Plan of Treatment Not on file documented as of this encounter Visit Diagnoses Not on filedocumented in this encounter Care Teams Belt Repairer Relationship Specialty Start Date End Date Rosaline Banegas MD PCP - General Internal Medicine 02/24/19 Edy Salgado MD [address] [facility] [place] [address] Consulting Physician Radiation Oncology 12/04/22 Seun Harrison MD [address] [place] [address] Consulting Physician Surgery 02/08/24 documented as of this encounter
--- OUTSIDE RECORDS SUMMARY | 2025-05-18 13:32 | XMS_ITS | Clinical Summary ---
Author Organization [facility]wd: [employer] Address [address] [place] [address] Care Team Providers Care System Support Administrator Name Role Phone Rosaline Banegas MD Primary Care Provider [phone] Source Comments [facility]: [employer],non-owned Affiliates and Associated Physician Practices is amultiple site organization consisting of ambulatory clinics and hospital sitesin [place], [place], [place] and [place]. This disclosure is being madepursuant to the Care Everywhere program and may not contain all information available regarding this patient. Last updated 18.[employer] Fwd: [facility] Allergies No known active allergies Medications * [...] on file Legal Sex Male 11:45 AM SETTER JUICE PACKAGING MACHINES Gender Identity Not on file Sexual Orientation Not on file Last Filed Vital Signs Vital Sign Reading Time Taken Comments Blood Pressure 120/72 12/03/2022 3:51 PM SETTER JUICE PACKAGING MACHINES Pulse 77 12/03/2022 3:51 PM SETTER JUICE PACKAGING MACHINES Temperature 36.4 C (97.5 F) 11/27/2022 11:33 AM SETTER JUICE PACKAGING MACHINES Respiratory Rate 18 11/27/2022 11:3 3 AM SETTER JUICE PACKAGING MACHINES Oxygen Saturation 97% 12/03/2022 3:51 PM SETTER JUICE PACKAGING MACHINES Inhaled Oxygen Concentration - - Weight 113.6 kg (250 lb 6.4 oz) 12/03/2022 3:51 PM SETTER JUICE PACKAGING MACHINES Height 180.3 cm (5' 11) 12/03/2022 3:51 PM SETTER JUICE PACKAGING MACHINES Body Mass Index 34.92 12/03/2022 3:51 PM SETTER JUICE PACKAGING MACHINES Plan of Treatment Health Maintenance Due Date [...] Diagnosis Comments EGD Routine 12/09/2018 1:28 PM SETTER JUICE PACKAGING MACHINES ENDOSCOPY, COLON, SCREENING Routine 12/09/2018 1:27 PM SETTER JUICE PACKAGING MACHINES from Last 3 Months or Most Recently Relevant to Health Maintenance Results * EGD (12/09/2018 1:28 PM SETTER JUICE PACKAGING MACHINES) Report Endoscopy POC __ _ Patient Name: [...] saturations were monitored continuously. The [id number] SN [id number] was introduced through the mouth, and advanced [...] clinical course. Procedure Code(s): --- Professional --- 42808, Esophagogastroduode noscopy, flexible, transoral; with removal of tumor(s), polyp(s), or other lesion(s) by hot biopsy forceps 84365, 59, Esophagogastroduode noscopy, flexible, transoral; with biopsy, single or multiple --- Technical --- 00303, Esophagogastroduode noscopy, flexible, transoral; with removal of tumor(s), polyp(s), or other lesion(s) by hot biopsy forceps 25822, 59, Esophagogastroduode noscopy, flexible, transoral; with biopsy, single or multiple Diagnosis Code(s): --- Professional --- K22.8, Other specified diseases of esophagus K31.7, Polyp of stomach and duodenum R10.13, Epigastric pain R12, Heartburn --- Technical --- K22.8, Other specified diseases of esophagus K31.7, Polyp of stomach and duodenum R10.13, Epigastric pain R12, Heartburn CPT copyright 2017 [employer] [employer]. All rights reserved. The codes documented in this report are preliminary and upon coin dealer review may be revised to meet current compliance requirements. __ Davonte Gregg MD 12/09/2018 1:59:45 PM This report has been signed electronically. Number of Addenda: 0 Note Initiated On: 12/09/2018 1:28 PM Estimated Blood Loss: Estimated blood loss: none. [facility] ENDOSCOPY 12/09/2018 1:28 PM SETTER JUICE PACKAGING MACHINES us Davonte Gregg MD GI PROCEDURE ORDERABLES Edit ed Result - Final [facility] ENDOSCOPY * ENDOSCOPY, COLON, SCREENING (12/09/2018 1:27 PM SETTER JUICE PACKAGING MACHINES) Report Endoscopy POC _ Patient Name: Seun [...] and oxygen saturations were monitored continuously. The [id number] SN [id number] was introduced through the anus and advanced [...] for surveillance. Procedure Code(s): --- Professional --- 76341, Colonoscopy, flexible; with removal of tumor(s), polyp(s), or other lesion(s) by hot biopsy forceps --- Technical --- 93617, Colonoscopy, flexible; with removal of tumor(s), polyp(s), [...] flexure or splenic flexure) CPT copyright 2017 [employer]. All rights reserved. The codes documented in this report are preliminary and upon coin dealer review may be revised to meet current compliance requirements. Davonte Gregg MD 12/09/2018 2:01:30 PM This report has been signed electronically. Number of Addenda: 0 Note Initiated On: 12/09/2018 1:27 PM Estimated Blood Loss: Estimated blood loss: none. [facility] ENDOSCOPY 12/09/2018 1:27 PM SETTER JUICE PACKAGING MACHINES us Davonte Gregg MD GI PROCEDURE ORDERABLES Edit ed Result - Final [facility] END[facility] from Last 3 Months or Most Recently Relevant to Health Maintenance Insurance AETNA MEDICARE ADV Care Teams System Support Administrator Relationship Specialty Start Date End Date Rosaline Banegas MD [address] [place] [address] PCP - General Internal Medicine 11/27/22
--- OUTSIDE RECORDS SUMMARY | 2025-05-18 13:32 | XMS_ITS ---
Author Organization [facility] Address [address] [place] [address] Phone Care Team Providers Care Emt P Name Role Phone Rosaline Banegas MD Primary Care Provider Edy Salgado MD Unavailable Seun Harrison MD Unavailable Active Problems Problem [...] maintenance/vaccinations Assessment & Plan (12/29/2023 3:52 PM WEBLOGIC DEVELOPER): Possible etiology for his exertional dyspnea - [...] 12/29/2023 Assessment & Plan (12/29/2023 3:55 PM WEBLOGIC DEVELOPER): Diet and lifestyle modifications discussed to achieve weight loss Ozempic was helpful in the past. Was discontinued due to side effects -- asked him to call Dr. Banegas (PCP) to discuss reinitiation of medications Benign prostatic hyperplasia with lower urinary tract symptoms 11/20/2023 Contusion of right lesser to e(s) with damage to nail, subsequent encounter 09/30/2023 Assessment & Plan (09/30/2023 9:12 AM WEBLOGIC DEVELOPER): Will continue to monitor the 2nd digit right foot. If continued issues and no distal migration of suspected subungual hematoma, I'd recommend nail avulsion to examine nail bed. Plantar fascial fibromatosis 09/22/2023 Assessment & Plan (10/27/2023 10:33 AM WEBLOGIC DEVELOPER): We discussed further treatment options as he [...] stretches. Assessment & Plan (09/30/2023 10:00 AM WEBLOGIC DEVELOPER): He had minimal response to the steroid [...] exercises. Assessment & Plan (09/22/2023 2:41 PM WEBLOGIC DEVELOPER): He has noted acute on chronic plantar [...] 09/22/2023 Assessment & Plan (09/30/2023 10:01 AM WEBLOGIC DEVELOPER): This is chronic in nature. Plan would be to resect this surgically once the patient is agreeable to surgery. Assessment & Plan (09/22/2023 2:39 PM WEBLOGIC DEVELOPER): Discussed about possible surgical management of continued issues involving an exostectomy of the infracalcaneal exostosis. Contusion of right lesser to e(s) with damage to nail, initial encounter 09/22/2023 Assessment & Plan (09/22/2023 2:40 PM WEBLOGIC DEVELOPER): He is noted history of a contusion [...] cancer 03/19/2023 Coronary artery disease invo lving [place] coronary artery of [place] heart without angina pectoris 09/28/2022 Memory loss [...] reportable services. Coronary artery disease invo lving [place] coronary artery of [place] heart without angina pectoris 06/20/2018 Essential hypertension [...] Continue Assessment & Plan (12/29/2023 3:52 PM WEBLOGIC DEVELOPER): Using CPAP with good benefit Recs: 1) Continue Chronic coronary artery disease 03/11/2011 Overview (02/04/2018): Description: Multi-vessel Coronary Artery Stenosis Assessment & Plan (06/06/2024 7:04 PM CDT): He has remote LAD stenting and progressive symptoms of chest pain reminiscent to prior angina and exertional dyspnea that is unexplained by non coronary workup. Therefore recommend diagnostic cath and possible PCI if appropriate. - [facility] possible PCI (MDM: major surgery with [...]
--- OUTSIDE RECORDS SUMMARY | 2025-05-18 13:32 | XMS_ITS | Clinical Summary ---
Author Organization [facility] Address [address] [place] [address] Care Team Providers Care Director Of Strategic Initiatives Name Role Phone Unavailable Primary Care Provider [...]
--- OUTSIDE RECORDS SUMMARY | 2025-05-18 13:32 | XMS_ITS | Clinical Summary ---
Author Organization [facility] Address [address] [place] [address] Phone Care Team Providers Care Poultry Inseminator Name Role Phone Rosaline Banegas MD Primary [...] Additional Information Patient not taking.Reported on 04/24/2025 fluticasone propionate (FLONASE) 50 mcg/actuation nasal spray [...] DAY 90 tablet 3 05/01/20 25 Active carvediloL (COREG) 6.25 mg tablet TAKE 1 TABLET BY MOUTH TWICE A DAY WITH MEALS 180 tablet 1 05/12/20 25 Active carvediloL (COREG) 6.25 mg tablet Take 1 tablet (6.25 mg total) by mouth 2 (two) times a day with meals 180 tablet 3 03/16/20 24 025 Discontinued amLODIPine (NORVASC) 5 mg tablet TAKE 1 [...] maintenance/vaccinations Assessment & Plan (12/29/2023 3:52 PM DISABILITY INSURANCE CLAIM EXAMINER): Possible etiology for his exertional dyspnea - [...] 12/29/2023 Assessment & Plan (12/29/2023 3:55 PM DISABILITY INSURANCE CLAIM EXAMINER): Diet and lifestyle modifications discussed to achieve weight loss Ozempic was helpful in the past. Was discontinued due to side effects -- asked him to call Dr. Banegas (PCP) to discuss reinitiation of medications Benign prostatic hyperplasia with lower urinary tract symptoms 11/20/2023 Contusion of right lesser to e(s) with damage to nail, subsequent encounter 09/30/2023 Assessment & Plan (09/30/2023 9:12 AM DISABILITY INSURANCE CLAIM EXAMINER): Will continue to monitor the 2nd digit right foot. If continued issues and no distal migration of suspected subungual hematoma, I'd recommend nail avulsion to examine nail bed. Plantar fascial fibromatosis 09/22/2023 Assessment & Plan (10/27/2023 10:33 AM DISABILITY INSURANCE CLAIM EXAMINER): We discussed further treatment options as he [...] stretches. Assessment & Plan (09/30/2023 10:00 AM DISABILITY INSURANCE CLAIM EXAMINER): He had minimal response to the steroid [...] exercises. Assessment & Plan (09/22/2023 2:41 PM DISABILITY INSURANCE CLAIM EXAMINER): He has noted acute on chronic plantar [...] 09/22/2023 Assessment & Plan (09/30/2023 10:01 AM DISABILITY INSURANCE CLAIM EXAMINER): This is chronic in nature. Plan would be to resect this surgically once the patient is agreeable to surgery. Assessment & Plan (09/22/2023 2:39 PM DISABILITY INSURANCE CLAIM EXAMINER): Discussed about possible surgical management of continued issues involving an exostectomy of the infracalcaneal exostosis. Contusion of right lesser to e(s) with damage to nail, initial encounter 09/22/2023 Assessment & Plan (09/22/2023 2:40 PM DISABILITY INSURANCE CLAIM EXAMINER): He is noted history of a contusion [...] cancer 03/19/2023 Coronary artery disease invo lving [place] coronary artery of [place] heart without angina pectoris 09/28/2022 Memory loss [...] reportable services. Coronary artery disease invo lving [place] coronary artery of [place] heart without angina pectoris 06/20/2018 Essential hypertension [...] Continue Assessment & Plan (12/29/2023 3:52 PM DISABILITY INSURANCE CLAIM EXAMINER): Using CPAP with good benefit Recs: 1) Continue Chronic coronary artery disease 03/11/2011 Overview (02/04/2018): Description: Multi-vessel Coronary Artery Stenosis Assessment & Plan (06/06/2024 7:04 PM CDT): He has remote LAD stenting and progressive symptoms of chest pain reminiscent to prior angina and exertional dyspnea that is unexplained by non coronary workup. Therefore recommend diagnostic cath and possible PCI if appropriate. - C possible PCI (MDM: major surgery with patient [...] Department Care Team Description 04/25/2025 Results Follow-Up [facility] Cardiology [address] [place] [address] Franny Aragon RMA Basic metabolic panel, Lipid panel, CBC with auto differential, Additional followed-up results: 2 04/24/2025 10:05 AM CDT Lab [facility] [address] [place] [address] Dyslipidemia; Chronic coronary artery disease 04/24/2025 9:15 AM CDT Office Visit [facility] [address] [place] [address] Casa Banegas MD Dyslipidemia (Primary Dx); Chronic coronary artery disease 03/30/2025 Telephone [facility] Radiation Oncology [address] [place] [phone] Linda Caldwell RN 03/30/2025 Orders Only [facility] Radiation Oncology [address] [place] [phone] Linda Caldwell RN Prostate cancer (HCC) (Primary Dx) 03/29/2025 8:15 AM CDT Office Visit [facility] Radiation Oncology [address] [place] [phone] Edy Salgado MD Prostate cancer (HCC) (Primary Dx) 03/29/2025 8:00 AM CDT Lab [facility] [address] [place] [address] Prostate cancer (HCC) 03/16/2025 Orders Only [facility] Radiation Oncology [address] [place] [address] Linda Caldwell RN Prostate cancer [...] hypertension 06/20/2018 Coronary artery disease invo lving [place] coronary artery of [place] heart without angina pectoris 06/20/2018 Obstructive sleep [...] on file Legal Sex Male 1:23 AM DISABILITY INSURANCE CLAIM EXAMINER Gender Identity Not on file Sexual Orientation [...] 09/01/2029 09/01/2019 Medical Devices Implanted Type Area Social Service Director Device Identifier Shelf Expiration Date Model / Serial / Lot [employer] R[employer] Prosthesis Uro Rectal Spacer Assembly Kit Spaceoar Mauricio 10ml Synthetic [id number] - [id number] Implanted:Qty: 1 on 04/20/2023 by Seun Harrison MD at [facility] N/A: Prostate [employer] Rip 09/01/2024 [id number] / / [id number] Description:Posterior prosta te (between) anterior rectum [employer] Marker Fiducial Placement Needle Polymark [id number] - [id number] Implanted:Qty: 1 on 04/20/2023 by Seun Harrison MD at [facility] N/A: Prostate [employer] 09/24/2026 [id number] / / [id number] [employer] Marker Fiducial Placement Needle Polymark [id number] m [id number] - [id number] Implanted:Qty: 1 on 04/20/2023 by Seun Harrison MD at [facility] N/A: Prostate [employer] 10/25/2026 [id number] 820 / / [id number] [employer] Marker Fiducial Placement Needle Polymark [id number] m [id number] - [id number] Implanted:Qty: 1 on 04/20/2023 by Seun Harrison MD at [facility] N/A: Prostate [employer] 10/25/2026 [id number] 820 / / [id number] [employer] Prosthesis Uro Prostate Urethra Cartridge Urolift 2 Ul2-C - [id number] Implanted:Qty: 1 on 02/08/2024 by Seun Harrison MD at [facility] N/A: Prostate [employer] 06/23/2025 UL2-C / / [id number] [employer] Prosthesis Uro Prostate Urethra Cartridge Urolift 2 Ul2-C - [id number] Implanted:Qty: 3 on 02/08/2024 by Seun Harrison MD at [facility] N/A: Prostate [employer] 07/08/2025 UL2-C / / [id number] [employer] Prosthesis Uro Prostate Urethra Cartridge Urolift 2 Ul2-C - [id number] Implanted:Qty: 1 on 02/08/2024 by Seun Harrison MD at [facility] N/A: Prostate [employer] 07/27/2025 UL2-C / / [id number] Procedures Procedure Name Priority Date/Time Associated Diagnosis [...] MD LAB BLOOD ORDERABLES Final Res ult [facility] [address] [facility] Department [place] [address] * (ABNORMAL) Differential, auto (04/24/2025 10:08 AM CDT) Neutrophil abs 6.78(H) 1.50 - 6.50 K/cumm Imm gran abs 0.08 0.00 - 0.10 K/cumm [facility] Lymphocyte abs 1.76 0.80 - 3.30 K/cumm [facility] Monocyte abs 0.68 0.20 - 0.80 K/cumm [facility] Eosinophil abs 0.11 0.00 - 0.50 K/cumm [facility] Basophil abs 0.04 0.00 - 0.10 K/cumm [facility] Neutrophil pct 71.8 % [facility] Comment: Interpretive Data Percent cell count reference ranges are not reported, since discordance with absolute values may lead to misinterpretation of CBC data. Current Interpretive Data was last revised on 2018. Imm gran pct 0.8 % [facility] Comment: Interpretive Data Percent cell count reference ranges are not reported, since discordance with absolute values may lead to misinterpretation of CBC data. Current Interpretive Data was last revised on 2018. Lymphocyte pct 18.6 % [facility] Comment: Interpretive Data Percent cell count reference ranges are not reported, since discordance with absolute values may lead to misinterpretation of CBC data. Current Interpretive Data was last revised on 2018. Monocyte pct 7.2 % [facility] Comment: Interpretive Data Percent cell count reference ranges are not reported, since discordance with absolute values may lead to misinterpretation of CBC data. Current Interpretive Data was last revised on 2018. Eosinophil pct 1.2 % [facility] Comment: Interpretive Data Percent cell count reference ranges are not reported, since discordance with absolute values may lead to misinterpretation of CBC data. Current Interpretive Data was last revised on 2018. Basophil pct 0.4 % [facility] Comment: Interpretive Data Percent cell count reference ranges are not reported, since discordance with absolute values may lead to misinterpretation of CBC data. Current Interpretive Data was last revised on 2018. Blood 04/24/2025 10:0 8 AM CDT 04/24/2025 11:55 AM CDT us Casa Banegas MD LAB BLOOD ORDERABLES Final Res ult [facility] [address] [facility] [place] [address] * CBC with auto differential (04/24/2025 10:08 AM CDT) WBC 9.45 3.80 - 9.90 K/cumm Hgb 15.8 13.0 - 17.5 g/dL [facility] Hct 47.5 38.9 - 50.3 % [facility] Plt 192 150 - 400 K/cumm [facility] MPV 9.1 9.1 - 12.3 fL [facility] RBC 5.11 4.30 - 5.80 M/cumm [facility] MCV 93.0 81.3 - 96.4 fL [facility] MCH 30.9 27.1 - 33.3 pg [facility] MCHC 33.3 32.3 - 35.7 g/dL [facility] RDW CV 13.1 11.1 - 14.9 % [facility] RDW SD 44.8 35.7 - 48.1 fL [facility] NRBC abs 0.00 0.00 - 0.01 K/cumm [facility] Blood 04/24/2025 10:0 8 AM CDT 04/24/2025 11:55 AM CDT us Casa Banegas MD LAB BLOOD ORDERABLES Final Res ult [facility] [address] [facility] [place] [address] * Lipid panel (04/24/2025 10:08 AM CDT) [...] revised on 2018. Triglycerides 59 <=149 mg/dL [facility] Comment: Interpretive Data Ages < or = [...] revised on 2018. HDL 47 >=40 mg/dL [facility] Comment: Interpretive Data Ages < or = [...] on 2018. LDL, calculated 70 <=129 mg/dL [facility] Comment: Interpretive Data Ages < or = [...] NCEP Expert Panel. Circulation 2004;110:227 3. Saroj M et al. ESTER Cardiol. 2020 February 23;5(5):540-548. doi: 10.1001/jamacardio.2020.0013 Current Interpretive Data was last revised on 2024. Non-HDL Cholesterol 83 mg/dL [facility] Comment: Interpretive Data Ages < or = [...] last revised on 2018. Chol/HDL ratio 3 [facility] Blood 04/24/2025 10:0 8 AM CDT 04/24/2025 11:55 AM CDT Casa Banegas MD LAB BLOOD ORDERABLES Final Res ult [facility] Department [place] [address] * Basic metabolic panel (04/24/2025 10:08 AM CDT) Pathologist [facility] Sodium 144 135 - 145 mmol/L Potassium, pl 4.8 3.3 - 4.9 mmol/L [facility] Chloride 105 97 - 110 mmol/L [facility] CO2 30 22 - 32 mmol/L [facility] Anion gap 9 2 - 15 mmol/L [facility] BUN 18 6 - 25 mg/dL [facility] Creatinine 0.84 0.80 - 1.30 mg/dL [facility] Glucose 103 70 - 199 mg/dL [facility] Comment: Interpretive Data Fasting glucose >/= 126 [...] classification and Diagnosis of Diabetes Diabetes Care 202; 46: S19-S40. Current interpretive data was last revised 2022. Calcium 9.5 8.5 - 10.3 mg/dL [facility] Blood 04/24/2025 10:0 8 AM CDT 04/24/2025 11:55 AM CDT Casa Banegas MD LAB BLOOD ORDERABLES Final Res ult [facility] Department [place] [address] * PSA diagnostic (03/29/2025 7:56 AM CDT) [...] MD LAB BLOOD ORDERABLES Final Result [facility] [address] Department [place] [address] from Last 3 Months Insurance T MEDICARE AET MEDICARE [facility] MEDICARE Advance Directives For more information, please contact: [phone] * Full Code (Latest Code Status on File) Date Activated Date Inactivated Comments 04/30/2023 9:19 AM 04/30/2023 4:53 PM Care Teams Poultry Inseminator Relationship Specialty Start Date End Date Rosaline Banegas MD PCP - General Internal Medicine 02/24/19 Edy Salgado MD [address] [place] [address] Consulting Physician Radiation Oncology 12/04/22 Seun Harrison MD [address] [place] [address] Consulting Physician Surgery 02/08/24
--- OUTSIDE RECORDS SUMMARY | 2025-05-18 13:32 | XMS_ITS | Encounter Summary ---
Author Organization [facility] Address [address] [place] [address] Phone Care Team Providers Care Humanities Professor Name Role Phone Rosaline Banegas MD Primary Care Provider + [phone] Edy Salgado MD Unavailable Seun Harrison MD Unavailable [phone] Encounter Details Date Type Department Care Team (Latest Contact Info) Description 09/01/2019 Orders Only [facility] Scanning, Provider Social History Tobacco Use Types Packs/Day Years Used Date Smoking Tobacco: Former Smokeless Tobacco: Never Sex and Gender Information Value Date Recorded Sex Assigned at Not on file Legal 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
--- OUTSIDE RECORDS SUMMARY | 2025-05-18 13:32 | XMS_ITS | Encounter Summary ---
Author Organization [facility] Address [address] [place] [address] Phone Care Team Providers Care Studio Couch Frame Builder Name Role Phone Rosaline Banegas MD Primary Care Provider + [phone] Edy Salgado MD Unavailable Seun Harrison MD Unavailable Encounter Details Date Type Department Care Team (Latest Contact Info) Description 05/31/2019 Orders Only [facility] Scanning, Provider Social History Tobacco Use Types Packs/Day Years Used Date Smoking Tobacco: Former Smokeless Tobacco: Never Sex and Gender Information Value Date Recorded Sex Assigned at Not on file Legal Sex Male 1:23 AM ICU SPECIALIST Gender Identity Not on file Sexual [...] on filedocumented in this encounter Care Teams Studio Couch Frame Builder Relationship Specialty Start Date End Date Rosaline Banegas MD PCP - General Internal Medicine 02/24/19 Edy Salgado MD [address] [place] [address] Consulting Physician Radiation Oncology 12/04/22 Seun Harrison MD [address] [place] [address] Consulting Physician Surgery 02/08/24 documented as of this encounter
--- OUTSIDE RECORDS SUMMARY | 2025-05-18 13:32 | XMS_ITS | Data Portability ---
Author Organization [place] [facility], Main Office Address [address] [place] [address] Assessment Encounter Date Assessment Date Assessment LastModified [...] Please schedule for L hip. Thanks 2024 [facility] Physical Therapy, [address] [place], [address], 05/12/2025 09:28:15 physical therapist referral - Please schedule pt for R shoulder. Thanks 2024 [facility] Physical Therapy, [address] [address] [facility] [place], [address], 05/12/2025 09:28:00 Procedures None recorded. Surgeries None recorded. Imaging XR, hip + pelvis, unilatera l, 2 or 3 view 2024 [email or web address] [facility] [place], [address], [place], [address], 05/11/2025 18:59:25 XR, shoulder, 2 or more view 2024 [email or web address] [facility] [place], [address], [place], [address], 05/11/2025 18:59:25 Medication Orders meloxicam 15 mg tablet [email or web address] [id number], [address] [place], [address], 05/11/2025 18:59:25 Patient TargetsNo targets recorded. Patient [...] observ ation record ed. [email or web address] [facility] [place] [address], [place], [address], 05/10/2025 09:54:37 05/10/20 25 XR, shoul tristen, 2 or more view No observ ation record ed. [email or web address] [facility] [place] [address], [place], [address], 05/10/2025 09:59:33 Result Notes None recorded. Problems Name Problem SNOMED Code Status Onset Date Resolution Date Notes Provider Name and Address Organization Details Recorded Time Pain of hip region 66022728 Active 2024 [facility] 5 09:54:31 Pain of right shoulder joint 203972125042965 00 Active 2024 [employer] 5 09:59:29 Problem Notes None recorded. Medical [...] Updated DateTime 05/10/2025 177.8 cm 29.4 kg/m2 77589.44 g America Villagomez [place] [facility] 05/10/2025 09:51:07 Social History Question Answer Notes LastModified by Organizat ion Details LastModified Time Tobacco Smoking Status Never Smoker America Villagomez marii [place] [facility] 05/10/2025 09:53:05 What Was The Date Of Your Most Recent Tobacco Screening? 05/10/2025 [email or web address] Information not available 05/10/2025 Sex: Unknown Functional Status None recorded. Mental Status None recorded. Family History Nothing Reported Notes:Cancer: Brother Medical History Condition Response DIABETES, TYPE Y COPD Y CANCER: SPECIFY Y HEPATITIS / LIVER DISEASE Y URINARY/BLADDER/KIDNEY PROBLEMS Y Past Encounters Encounter ID Performer Location Encounter Start Date Encounter Closed Date Diagnosis/Indication Diagnosis SNOMED-CT Code Diagnosis ICD10 Code Diagnosis Note [id number] Seth Batista MD [facility] [place] [address] [place] [address] 05/10/2025 09:38:43 05/10/2025 10:50:30 Pain of hip region 99246055 M25.552 Pain of ri ght shoulder joint 9220233964 4839746 M25.511 Health Concerns Section Related Observation LastModified by Organization Detai ls LastModified Time None Recorded Concern Status LastModified by Organization Details LastModified Time None Recorded Advance Directives Directive None Recorded Payers Insurance Date Sequence Insurance Name Policy Number Policy Tom Covered Member ID Tom Member ID Guarantor Name 05/09/2025 1 [employer] (MEDICARE REPLACEMENT/ ADVANTAGE - PPO) [id number] Seun Lemus [id number] Seun Lemus 05/08/2025 1 [place] Seun Lemus [id number] Seun Lemus
--- OUTSIDE RECORDS SUMMARY | 2025-05-18 13:32 | XMS_ITS | Encounter Summary ---
Author Organization 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
--- OUTSIDE RECORDS SUMMARY | 2025-05-18 13:32 | XMS_ITS | Continuity of Care Document ---
Author Organization [facility] Address [address] [place] [address] Phone Care Team Providers Care Flight Engineer Performance Qualified Name Role Phone House ELECTRICAL REPAIRER [place] DELGADILLO Unavailable Unavail able Allergies, Adverse [...] Provider Providers Copied on Encounter [facility], [address], [id number], [place] tel:[phone] [facility] right shoulder pain (chief complaint) left shoulder pain (chief complaint) Bicipital tendinitis, left shoulderPrima ry osteoarthriti s, right shoulderCompl ete rotatr-cuff tear/ruptr of left shoulder, not traumaBursiti s of right shoulder 5 [facility] [place] . [address] [facility], [address], [id number] , [place]. tel:[phone] Referring Provider: Rosaline Hawk, [address] [place] [address], [address]. tel:[phone] [facility], [address] [address], [place], [place], [id number], [place] tel:[phone] [facility] left shoulder pain (chief complaint) right shoulder pain (chief complaint) Primary osteoarthriti s, left shoulderCompl ete rotatr-cuff tear/ruptr of left shoulder, not traumaBicipit al tendinitis, left shoulderPrima ry osteoarthriti s, right shoulderBursi tis of right shoulder [address] [place] [address] ELECTRICAL REPAIRER [place] . [address] [facility], [facility] [address], [place], [id number] , [place]. tel:[phone] Referring Provider: Rosaline Hawk, [address] [place] [address], [address]. tel:[phone] Office/outpa tient visit,est, mod [facility], [address], [id number], [place] tel:[phone] [facility] left shoulder pain (chief complaint) right shoulder pain (chief complaint) Primary osteoarthriti s, left shoulderBicip ital tendinitis, left shoulderArthr opathy, unspecifiedBu rsitis of right shoulder Sep-3 0 4 House ELECTRICAL REPAIRER [place] . [address], [id number] , [place]. tel:[phone] Referring Provider: Rosaline Hawk, [address] [place] [address], [address]. tel:[phone] [facility], [address], [id number], [place] tel:[phone] [facility] left shoulder pain (chief complaint) Complete rotatr-cuff tear/ruptr of left shoulder, not traumaBicipit al tendinitis, left shoulderPrima ry osteoarthriti s, left shoulderArthr opathy, unspecified [place] [address] [place] ELECTRICAL REPAIRER [place] . [address] [facility], [place] [address], [place], [place], [id number] , [place]. tel:[phone] Referring Provider: Rosaline Hawk, [address] [place] [address], [address]. tel:[phone] [facility], [address], [id number], [place] tel:[phone] [employer] [facility] left shoulder pain (chief complaint) right shoulder pain (chief complaint) Primary osteoarthriti s, left shoulderCompl ete rotatr-cuff tear/ruptr of left shoulder, not traumaBicipit al tendinitis, left shoulderArthr opathy, unspecifiedBu rsitis of right shoulder Mar-2 4 House ELECTRICAL REPAIRER [place] . [address] [facility], [facility] [address], [place], [place], [id number] , [place]. tel:[phone] Referring Provider: Rosaline Hawk, [address] [place] [address], [address]. tel:[phone] Office/outpa tient visit,est, [facility], [address] [address], [place], [place], [id number], [place] tel:[phone] [facility] right shoulder pain (chief complaint) left shoulder pain (chief complaint) Pain in right shoulderBursi tis of right shoulderBicip ital tendinitis, left shoulderPrima ry osteoarthriti s, left shoulderArthr opathy, unspecifiedCo mplete rotatr-cuff tear/ruptr of left shoulder, not trauma 3 House ELECTRICAL REPAIRER [place] . [address] [facility], [address], [id number] , [place]. tel:[phone] Referring Provider: Rosaline Hawk, [address] [place] [address], [address]. tel:[phone] [facility], [address] [address], [place], [place], [id number], [place] tel:[phone] [facility] left shoulder pain (chief complaint) Pain in left shoulderPrima ry osteoarthriti s, left shoulderBicip ital tendinitis, left shoulder 3 House ELECTRICAL REPAIRER [place] . [address] [facility], [facility] [address], [place], [place], [id number] , [place]. tel:[phone] Referring Provider: Angeles Braswell, [address] [facility] [address] [facility], [place], [address]. tel:[phone] Office/outpa tient visit,est, [facility], [address] [address], [place], [place], [id number], [place] tel:[phone] [facility] Pain in left shoulder 3 Raúl Maldonado. [address] [facility], [place], [place], [id number] , [place]. tel: [phone] Referring Provider: Joel Olsen MD T, [address] [facility] [address], [place], [address]. tel:[phone] Family History Family Member Type Diagnosis Age At Onset No Information Immunizations Vaccine Date Status Comments influenza, injectable, quadr ivalent, (3 years or older) administered Source: Other Provid er Payers Payer name Insurance type Covered republican ID Authorrosibela azid(s) [employer] Medicare CI [id number] Social History Type Description Quantity Date Captured [...]
--- OUTSIDE RECORDS SUMMARY | 2025-05-18 13:32 | XMS_ITS | Referral Summary ---
Author Organization [facility] Address [address] [place] [address] Phone Care Team Providers Care Take Off Man Name Role Phone Rosaline Banegas MD Primary Care Provider Edy Salgado MD Unavailable Seun Harrison MD Unavailable Encounters Date Type Department Care Team Description 04/25/2025 Results Follow-Up [facility] Cardiology [address] [place] [address] Franny Aragon RMA Basic metabolic panel, Lipid panel, CBC with auto differential, Additional followed-up results: 2 04/24/2025 10:05 AM CDT Lab [facility] [address] [place] [address] [address] [place] [address] Dyslipidemia; Chronic coronary artery disease 04/24/2025 9:15 AM CDT Office Visit [facility] Cardiology [address] [facility] [facility] [address] [place] [address] Casa Banegas MD Dyslipidemia (Primary Dx); Chronic coronary artery disease 03/30/2025 Telephone [facility] [address] [place] [address] Linda Caldwell RN 03/30/2025 Orders Only [facility] [address] [place] [phone] Linda Caldwell RN Prostate cancer (HCC) (Primary Dx) 03/29/2025 8:00 AM CDT Lab [facility] [address] [place] [phone] Prostate cancer (HCC) 03/29/2025 8:15 AM CDT Office Visit [facility] [address] [place] [phone] Edy Salgado MD Prostate cancer (HCC) (Primary Dx) 03/16/2025 Orders Only [facility] [address] [place] [phone] Linda Caldwell RN Prostate cancer (HCC) (Primary [...] ions:Chronic obstructive pulmonary disease, unspecified COPD type ([facility]) Inhale 1 puff daily 180 each 3 [...] maintenance/vaccinations Assessment & Plan (12/29/2023 3:52 PM WASH OIL COOLER OPERATOR): Possible etiology for his exertional dyspnea - [...] 12/29/2023 Assessment & Plan (12/29/2023 3:55 PM WASH OIL COOLER OPERATOR): Diet and lifestyle modifications discussed to achieve weight loss Ozempic was helpful in the past. Was discontinued due to side effects -- asked him to call Dr. Banegas (PCP) to discuss reinitiation of medications Benign prostatic hyperplasia with lower urinary tract symptoms 11/20/2023 Contusion of right lesser to e(s) with damage to nail, subsequent encounter 09/30/2023 Assessment & Plan (09/30/2023 9:12 AM WASH OIL COOLER OPERATOR): Will continue to monitor the 2nd digit right foot. If continued issues and no distal migration of suspected subungual hematoma, I'd recommend nail avulsion to examine nail bed. Plantar fascial fibromatosis 09/22/2023 Assessment & Plan (10/27/2023 10:33 AM WASH OIL COOLER OPERATOR): We discussed further treatment options as he [...] stretches. Assessment & Plan (09/30/2023 10:00 AM WASH OIL COOLER OPERATOR): He had minimal response to the steroid [...] exercises. Assessment & Plan (09/22/2023 2:41 PM WASH OIL COOLER OPERATOR): He has noted acute on chronic plantar [...] 09/22/2023 Assessment & Plan (09/30/2023 10:01 AM WASH OIL COOLER OPERATOR): This is chronic in nature. Plan would be to resect this surgically once the patient is agreeable to surgery. Assessment & Plan (09/22/2023 2:39 PM WASH OIL COOLER OPERATOR): Discussed about possible surgical management of continued issues involving an exostectomy of the infracalcaneal exostosis. Contusion of right lesser to e(s) with damage to nail, initial encounter 09/22/2023 Assessment & Plan (09/22/2023 2:40 PM WASH OIL COOLER OPERATOR): He is noted history of a contusion [...] cancer 03/19/2023 Coronary artery disease invo lving [place] coronary artery of [place] heart without angina pectoris 09/28/2022 Memory loss [...] reportable services. Coronary artery disease invo lving [place] coronary artery of [place] heart without angina pectoris 06/20/2018 Essential hypertension [...] Continue Assessment & Plan (12/29/2023 3:52 PM WASH OIL COOLER OPERATOR): Using CPAP with good benefit Recs: 1) Continue Chronic coronary artery disease 03/11/2011 Overview (02/04/2018): Description: Multi-vessel Coronary Artery Stenosis Assessment & Plan (06/06/2024 7:04 PM CDT): He has remote LAD stenting and progressive symptoms of chest pain reminiscent to prior angina and exertional dyspnea that is unexplained by non coronary workup. Therefore recommend diagnostic cath and possible PCI if appropriate. - [facility] possible PCI (MDM: major surgery with patient [...] on file Legal Sex Male 1:23 AM WASH OIL COOLER OPERATOR Gender Identity Not on file Sexual Orientation [...] on file Medical Devices Implanted Type Area Learning Administrator Device Identifier Shelf Expiration Date Model / Serial / Lot [employer] Prosthesis Uro Rectal Spacer Assembly Kit Spaceoar Mauricio 10ml Synthetic Sv-2101 - [id number] Implanted:Qty: 1 on 04/20/2023 by Seun Harrison MD at [facility] N/A: Prostate [employer] 09/01/2024 SV-2101 / / [id number] Description:Posterior prosta te (between) anterior rectum [employer] Marker Fiducial Placement Needle Polymark [id number] - [id number] Implanted:Qty: 1 on 04/20/2023 by Seun Harrison MD at [facility] N/A: Prostate [employer] 09/24/2026 [id number] / / [id number] [employer] Marker Fiducial Placement Needle Polymark [id number] - [id number] Implanted:Qty: 1 on 04/20/2023 by Seun Harrison MD at [facility] N/A: Prostate [employer] 10/25/2026 [id number] / / [id number] [employer] Marker Fiducial Placement Needle Polymark [id number] m [id number] - [id number] Implanted:Qty: 1 on 04/20/2023 by Seun Harrison MD at [facility] N/A: Prostate [employer] 10/25/2026 [id number] / / [id number] Prosthesis Uro Prostate Urethra Cartridge Urolift 2 Ul2-C - [id number] Implanted:Qty: 1 on 02/08/2024 by Seun Harrison MD at [facility] N/A: Prostate [employer] 06/23/2025 UL2-C / / [id number] [employer] Prosthesis Uro Prostate Urethra Cartridge Urolift 2 Ul2-C - [id number] Implanted:Qty: 3 on 02/08/2024 by Seun Harrison MD at [facility] N/A: Prostate [employer] 07/08/2025 UL2-C / / [id number] [employer] Prosthesis Uro Prostate Urethra Cartridge Urolift 2 Ul2-C - [id number] Implanted:Qty: 1 on 02/08/2024 by Seun Harrison MD at [facility] N/A: Prostate [employer] 07/27/2025 UL2-C / / [id number] Procedures Procedure Name Priority Date/Time Associated Diagnosis [...] of Race in Diagnosing Kidney Disease, JASN 202). The CKD-EPI equation should not be used for patients with unstable renal function and has not been validated in children and those over 70. Current interpretive data was last reviewed 2021. Blood 04/24/2025 10:0 8 AM CDT 04/24/2025 12:04 PM CDT us Casa Banegas MD LAB BLOOD ORDERABLES Final Res ult [facility] [address] [facility] [place] [address] * (ABNORMAL) Differential, auto (04/24/2025 10:08 AM CDT) Neutrophil abs 6.78(H) 1.50 - 6.50 K/cumm Imm gran abs 0.08 0.00 - 0.10 K/cumm [facility] Lymphocyte abs 1.76 0.80 - 3.30 K/cumm [facility] Monocyte abs 0.68 0.20 - 0.80 K/cumm [facility] Eosinophil abs 0.11 0.00 - 0.50 K/cumm [facility] Basophil abs 0.04 0.00 - 0.10 K/cumm [facility] Neutrophil pct 71.8 % [facility] Comment: Interpretive Data Percent cell count reference ranges are not reported, since discordance with absolute values may lead to misinterpretation of CBC data. Current Interpretive Data was last revised on 2018. Imm gran pct 0.8 % [facility] Comment: Interpretive Data Percent cell count reference ranges are not reported, since discordance with absolute values may lead to misinterpretation of CBC data. Current Interpretive Data was last revised on 2018. Lymphocyte pct 18.6 % [facility] Comment: Interpretive Data Percent cell count reference ranges are not reported, since discordance with absolute values may lead to misinterpretation of CBC data. Current Interpretive Data was last revised on 2018. Monocyte pct 7.2 % [facility] Comment: Interpretive Data Percent cell count reference ranges are not reported, since discordance with absolute values may lead to misinterpretation of CBC data. Current Interpretive Data was last revised on 2018. Eosinophil pct 1.2 % [facility] Comment: Interpretive Data Percent cell count reference ranges are not reported, since discordance with absolute values may lead to misinterpretation of CBC data. Current Interpretive Data was last revised on 2018. Basophil pct 0.4 % [facility] Comment: Interpretive Data Percent cell count reference ranges are not reported, since discordance with absolute values may lead to misinterpretation of CBC data. Current Interpretive Data was last revised on 2018. Blood 04/24/2025 10:0 8 AM CDT 04/24/2025 11:55 AM CDT us Casa Banegas MD LAB BLOOD ORDERABLES Final Res ult [facility] [address] [facility] [place] [address] * CBC with auto differential (04/24/2025 10:08 AM CDT) WBC 9.45 3.80 - 9.90 K/cumm Hgb 15.8 13.0 - 17.5 g/dL [facility] Hct 47.5 38.9 - 50.3 % [facility] Plt 192 150 - 400 K/cumm [facility] MPV 9.1 9.1 - 12.3 fL [facility] RBC 5.11 4.30 - 5.80 M/cumm [facility] MCV 93.0 81.3 - 96.4 fL [facility] MCH 30.9 27.1 - 33.3 pg [facility] MCHC 33.3 32.3 - 35.7 g/dL [facility] RDW CV 13.1 11.1 - 14.9 % [facility] RDW SD 44.8 35.7 - 48.1 fL [facility] NRBC abs 0.00 0.00 - 0.01 K/cumm [facility] Blood 04/24/2025 10:0 8 AM CDT 04/24/2025 11:55 AM CDT us Casa Banegas MD LAB BLOOD ORDERABLES Final Res ult [facility] [address] [facility] [place] [address] * Lipid panel (04/24/2025 10:08 AM CDT) [...] revised on 2018. Triglycerides 59 <=149 mg/dL [facility] Comment: Interpretive Data Ages < or [...] revised on 2018. HDL 47 >=40 mg/dL [facility] Comment: Interpretive Data Ages < or [...] on 2018. LDL, calculated 70 <=129 mg/dL [facility] Comment: Interpretive Data Ages < or [...] NCEP Expert Panel. Circulation 2004;110:227 3. Saroj Turcios al. ESTER Cardiol. 2019February 23;5(5):540-548. doi: 10.1001/jamacardio.2020.0013 Current Interpretive Data was last revised on 2024. Non-HDL Cholesterol 83 mg/dL [facility] Comment: Interpretive Data Ages < or [...] last revised on 2018. Chol/HDL ratio 3 [facility] Blood 04/24/2025 10:0 8 AM CDT 04/24/2025 11:55 AM CDT Casa Banegas MD LAB BLOOD ORDERABLES Final Res ult Performing Organization Address City/[facility]/ZIP Co de Phone Number [facility] [place] [address] * Basic metabolic panel (04/24/2025 10:08 AM CDT) [facility] Sodium 144 135 - 145 mmol/L Potassium, pl 4.8 3.3 - 4.9 mmol/L [facility] Chloride 105 97 - 110 mmol/L [facility] CO2 30 22 - 32 mmol/L [facility] Anion gap 9 2 - 15 mmol/L [facility] BUN 18 6 - 25 mg/dL [facility] Creatinine 0.84 0.80 - 1.30 mg/dL [facility] Glucose 103 70 - 199 mg/dL [facility] Comment: Interpretive Data Fasting glucose >/= [...] 2022. Calcium 9.5 8.5 - 10.3 mg/dL [facility] Blood 04/24/2025 10:0 8 AM CDT 04/24/2025 11:55 AM CDT Casa Banegas MD LAB BLOOD ORDERABLES Final Res ult Performing Organization Address City/[facility]/ZIP Co de Phone Number [facility] [place] [address] * PSA diagnostic (03/29/2025 7:56 AM CDT) [...] MD LAB BLOOD ORDERABLES Final Result [facility] [address] [place] [address] from Last 3 Months Insurance T MEDICARE [facility] MEDICARE [facility] MEDICARE Advance Directives For more information, please contact: [phone] * Full Code (Latest Code Status on File) Date Activated Date Inactivated Comments 04/30/2023 9:19 AM 04/30/2023 4:53 PM Care Teams Take Off Man Relationship Specialty Start Date End Date Rosaline Banegas MD PCP - General Internal Medicine 02/24/19 Edy Salgado MD [address] [place] [place] [address] Consulting Physician Radiation Oncology 12/04/22 Seun Harrison MD [address] [facility] [place] [address] Consulting Physician Surgery 02/08/24
== END 2025-05-18 13:23 | disposition home or self-care (01) ==
LOC: CHSIMG 13:25
PROVIDERS: PCP Internal Medicine; Visit Provider Internal Medicine
DX: E05.90 Thyrotoxicosis, unspecified without thyrotoxic crisis or storm (principal); E04.2 Nontoxic multinodular goiter
CPT/HCPCS: 76536